=== PATIENT | female | born 1955 | race Caucasian/White ===

== ENCOUNTER 2019-04-09 14:03 | Inpatient (IN) | payer OTHER ==
--- NOTE | 2019-04-09 14:15 | PDOC ---
History of Present Illness - General Chief Complaint: Respiratory Stated Complaint: FEVER AND WEAKNESS Time Seen by Provider: 04/09/19 14:09 - History of Present Illness Initial Comments: HPI: 64yo F with PMH of pre-diabetes sent by urgent care for hypotension (90s systolic). Patient states she started feeling "flu-like symptoms" yesterday including fever, chills, and headache. She took two motrin yesterday and today. As she continued to feel poorly, she decided to go to an urgent care where she tested negative for flu but was instructed to go to the ER for further evaluation of her low blood pressure. Had a fever yesterday, Tmax 104.2F. Patient reports poor po intake today due to low appetite but has been drinking "a lot of water." No cough or urinary symptoms. Denies sick contacts or recent travel. PCP: none ROS: Constitutional: +fever, +chills HEENT: no throat pain, no dysphagia Cardiovascular: no chest pain, no palpitations Respiratory: no cough, no shortness of breath Gastrointestinal: no abdominal pain, no nausea Genitourinary: no dysuria, no hematuria Musculoskeletal: no myalgia, no arthralgia Skin: no rash, no itching Neurologic: +headache, +weakness PE: General: Awake, alert, and fully oriented, in no acute distress Head: No signs of trauma Eyes: EOMI, sclera anicteric ENT: Dry mucus membranes Neck: Normal ROM, supple Lungs: Lungs clear, Normal breath sounds Cardio: Regular rhythm, S1 and S2 present Abdomen: Soft, nontender. No guarding, no rebound, no masses Extremities: Normal range of motion, Distal pulses present SKIN: Warm, Dry, normal turgor Neurologic: Cranial nerves II through XII grossly intact. Normal speech ED Course/MDM: DDX including but not limited to viral illness, dehydration, anemia, metabolic derangement, ACS Fluids Tylenol 04/09/19 14:15 CXR without acute pathology, my impression 04/09/19 14:58 CBC WBC 16.8 K/mm3 (4.0-10.8) H 04/09/19 14:40 RBC 4.81 M/mm3 (3.60-5.2) 04/09/19 14:40 Hgb 14.0 GM/dl (10.7-15.3) 04/09/19 14:40 Hct 41.2 % (32.4-45.2) 04/09/19 14:40 MCV 85.6 fl (80-96) 04/09/19 14:40 MCH 29.1 pg (25.7-33.7) 04/09/19 14:40 MCHC 34.0 g/dl (32.0-36.0) 04/09/19 14:40 RDW 11.6 % (11.6-15.6) 04/09/19 14:40 Plt Count 155 K/MM3 (134-434) 04/09/19 14:40 MPV 8.4 fl (7.5-11.1) 04/09/19 14:40 Absolute Neuts (auto) 15.6 K/mm3 04/09/19 14:40 Neutrophils % No Result Required. 04/09/19 14:40 Neutrophils % (Manual) 80.0 % (42.8-82.8) 04/09/19 14:40 Band Neutrophils % 14.0 % (0-10) H 04/09/19 14:40 Lymphocytes % No Result Required. 04/09/19 14:40 Lymphocytes % (Manual) 5.0 % (8-40) L 04/09/19 14:40 Monocytes % (Manual) 1 % (3.8-10.2) L 04/09/19 14:40 Platelet Estimate Adequate 04/09/19 14:40 Leukocytosis CMP Sodium 125 mmol/L (136-145) L 04/09/19 14:40 Potassium 4.4 mmol/L (3.5-5.1) 04/09/19 14:40 Chloride 95 mmol/L (98-107) L 04/09/19 14:40 Carbon Dioxide 20 mmol/L (21-32) L 04/09/19 14:40 Anion Gap 10 MMOL/L (8-16) 04/09/19 14:40 BUN 12.0 mg/dl (7-18) 04/09/19 14:40 Creatinine 0.7 mg/dl (0.55-1.3) 04/09/19 14:40 Est GFR (CKD-EPI)AfAm 106.87 04/09/19 14:40 Est GFR (CKD-EPI)NonAf 92.21 04/09/19 14:40 Random Glucose 216 mg/dl (74-106) H 04/09/19 14:40 Calcium 8.2 mg/dl (8.5-10) L 04/09/19 14:40 Total Bilirubin 2.9 mg/dl (0.2-1) H 04/09/19 14:40 AST 42 U/L (15-37) H 04/09/19 14:40 ALT 28 U/L (13-61) 04/09/19 14:40 Alkaline Phosphatase 82 U/L (45-117) 04/09/19 14:40 Total Protein 6.7 g/dl (6.4-8.2) 04/09/19 14:40 Albumin 3.7 g/dl (3.4-5.0) 04/09/19 14:40 Hyponatremia; corrected sodium is 128 AST mildly elevated Normal Cr UA with signs of infection, 10-20 WBC, positive nitrite, trace LE, many bacteria Will treat with rocephin Patient feeling "very tired" Tolerated some saltine crackers Decision made to order blood cultures and lactate as blood work shows leukocytosis Plan for admission Pending flu test and lactate 04/09/19 16:38 EKG: rate 81, QTc 439, NSR, flattened/twi in V1/V2 no prior ekg's Flu negative Microblog sent; awaiting callback 04/09/19 17:08 Dr. Long spoke with Cayla Fenton who accepted patient for admission under Dr. West. Admission order placed. 04/09/19 17:36 Past History - Past Medical History Allergies/Adverse Reactions: Allergies Allergy/AdvReac Type Severity Reaction Status Date / Time No Known Allergies Allergy Verified 04/09/19 14:20 Home Medications: Ambulatory Orders Liothyronine Sodium 3 tab PO DAILY 04/09/19 Progesterone, Micronized [Progesterone] 2 cap PO DAILY 04/09/19 Thyroid,Pork [Nature-Throid] 2 tab PO DAILY 04/09/19 metFORMIN HCL [Metformin HCl ER] 1,000 mg PO DAILY 04/09/19 Anemia: No Asthma: No Cancer: No Cardiac Disorders: No CVA: No COPD: No Dementia: No Diabetes: No Dialysis: No GI Disorders: No Disorders: No HTN: No Hypercholesterolemia: No Kidney Stones: No Liver Disease: No Seizures: No Thyroid Disease: No - Surgical History Abdominal Surgery: No Appendectomy: No Cardiac Surgery: No Cholecystectomy: No Lung Surgery: No Neurologic Surgery: No - Immunization History Td Vaccination: No TDAP Vaccination: No Immunization Up to Date: No - Psycho Social/Smoking Cessation Hx Smoking Status: No Smoking History: Never smoked Number of Cigarettes Smoked Daily: 0 ED Treatment Course - LABORATORY CBC & Chemistry Diagram: 04/09/19 14:40 04/09/19 14:40 Discharge - Discharge Information Problems reviewed: Yes Clinical Impression/Diagnosis: Fever and chills, Sepsis associated hypotension UTI (urinary tract infection) Qualifiers: Urinary tract infection type: site unspecified Hematuria presence: with hematuria Qualified Code(s): N39.0 - Urinary tract infection, site not specified Condition: Guarded - Admission Yes - Follow up/Referral - Patient Discharge Instructions - Post Discharge Activity
[2019-04-09] MEDS ORDERED: SODIUM CHLORIDE 1,000 ML IV STA ×3 (14:16→18:27)
[2019-04-09] MEDS ORDERED: ACETAMINOPHEN 325 MG TABLET (FP) PO ONE (14:16)
[2019-04-09] MEDS ORDERED: ACETAMINOPHEN 325 MG TABLET (FP) ONE (14:26)
--- NOTE | 2019-04-09 14:45 | PDOC ---
Attending Attestation - Resident Resident Name: Saadia La - ED Attending Attestation I have performed the following: I have examined & evaluated the patient, The case was reviewed & discussed with the resident, I agree w/resident's findings & plan, Exceptions are as noted - HPI HPI: 04/09/19 18:06 Fever to 104 degrees yesterday, generalized weakness, malaise, fatigue, and body aches. Denies cough, URI symptoms, abdominal pain, dysuria, or skin rash. Seen in urgent care center today, blood pressure was noted to be low, and referred to ER. Past medical history is noncontributory to the above problem. No suggestion as to the source of the fever, other than a negative flu swab which was done at urgent care. - Physicial Exam PE: 04/09/19 18:10 PE: Alert oriented well-developed well-nourished, no acute distress but appears somewhat fatigued. Temperature 101, blood pressure 120/70. Remainder of vitals normal HEENT clear. PERRLA conjunctivae clear. Neck supple without bruit mass or nodes Chest clear with full breath sounds bilaterally, no wheezes rales or rhonchi CV S1-S2 normal without murmur rub or gallop pulses full and symmetric no JVD or edema no bruits regular Abdomen nondistended, bowel sounds normal, soft without mass tenderness or organomegaly Extremities no CCE Skin clear, no rash, adequate turgor but mucous membranes are somewhat dry Neurological C2 to 12 intact. Strength full and symmetric. No focal sensorimotor deficits. Gait stable and unimpaired - Medical Decision Making 04/09/19 18:08 Assessment: The patient symptoms are suggestive of influenza, although there are no specific symptoms present. Other possibilities are occult pneumonia or UTI. Plan: CBC, chemistries, chest x-ray, and urinalysis. Further evaluation and treatment depending on results. Also repeat flu swab. Results demonstrate an elevated white count of 18,000 in the urine suggestive of infection. Blood cultures, lactic acid, and repeat flu swab are pending. Empiric antibiotic treatment was begun and fluids administered. Admitted for further therapy and careful observation.
[2019-04-09 14:59] LABS: HEMATOCRIT 41.2 % (32.4-45.2); MCH 29.1 pg (25.7-33.7)
[2019-04-09 15:02] LABS: MEAN CELL VOLUME 85.6 fl (80-96); MEAN PLT VOLUME 8.4 fl (7.5-11.1); PLATELET COUNT 155 K/MM3 (134-434); RBC 4.81 M/mm3 (3.60-5.2); RDW 11.6 % (11.6-15.6); WHITE BLOOD COUNT 16.8 K/mm3 (4.0-10.8)
[2019-04-09 15:06] LABS: ALBUMIN 3.7 g/dl (3.4-5.0); BILIRUBIN,TOTAL 2.9 mg/dl (0.2-1); CALCIUM 8.2 mg/dl (8.5-10); CREATININE 0.7 mg/dl (0.55-1.3); POTASSIUM 4.4 mmol/L (3.5-5.1); TOT PROT 6.7 g/dl (6.4-8.2)
[2019-04-09 15:34] LABS: EPITHELIAL CELLS MODERATE /hpf
[2019-04-09 15:38] LABS: PLATELET ESTIMATE ADEQUATE
[2019-04-09] MEDS ORDERED: CEFTRIAXONE 1,000 MG in DEXTROSE 5%-WATER - 50 ML IVPB ONE (16:39)
[2019-04-09] MEDS ORDERED: cefTRIAXone SODIUM 1 GM VIAL ONE (16:43)
--- NOTE | 2019-04-09 17:33 | HP ---
CHIEF COMPLAINT: Malaise, fever PCP: None HISTORY OF PRESENT ILLNESS: 64 year-old female with no reported significant PMH, who takes thyroid medications and metformin for wellness/weight loss. She does not follow regularly with a PCP. Patient reports about a week ago she had an upper respiratory infection characterized as nasal congestion with clear discharge, no fever, no cough. She also had dysuria. Yesterday, she developed fever, sweats , and chills. She took her temperature and it was 104.2. She drank a lot of water and took motrin. Today she went to urgent care and was found to be hypotensive (90s systolic), and she was referred to the [place] ED. ER course was notable for: (1) T101.2, WBC 16.8k, pyuria (2) Na 127 corrected Recent Travel: No PAST MEDICAL HISTORY: None reported PAST SURGICAL HISTORY: None reported Social History: Smoking: no Alcohol: no Drugs: no Family history: Allergies No Known Allergies Allergy (Verified 04/09/19 14:20) HOME MEDICATIONS: Home Medications Medication Instructions Recorded Liothyronine Sodium 3 tab PO DAILY 04/09/19 Thyroid,Pork [Nature-Throid] 2 tab PO DAILY 04/09/19 metFORMIN HCL [Metformin HCl ER] 1,000 mg PO HS 04/09/19 REVIEW OF SYSTEMS CONSTITUTIONAL: +fever, sweats, chills, malaise Absent: diaphoresis, generalized weakness, loss of appetite, weight change HEENT: Absent: rhinorrhea, nasal congestion, throat pain, throat swelling, difficulty swallowing, mouth swelling, ear pain, eye pain, visual changes CARDIOVASCULAR: Absent: chest pain, syncope, palpitations, irregular heart rate, lightheadedness , peripheral edema RESPIRATORY: Absent: cough, shortness of breath, dyspnea with exertion, orthopnea, wheezing, stridor, hemoptysis GASTROINTESTINAL: Absent: abdominal pain, abdominal distension, nausea, vomiting, diarrhea, constipation, melena, hematochezia GENITOURINARY: +dysuria Absent: frequency, urgency, hesitancy, hematuria, flank pain, genital pain MUSCULOSKELETAL: Absent: myalgia, arthralgia, joint swelling, back pain, neck pain SKIN: Absent: rash, itching, pallor HEMATOLOGIC/IMMUNOLOGIC: Absent: easy bleeding, easy bruising, lymphadenopathy, frequent infections ENDOCRINE: Absent: unexplained weight gain, unexplained weight loss, heat intolerance, cold intolerance NEUROLOGIC: Absent: headache, focal weakness or paresthesias, dizziness, unsteady gait, seizure, mental status changes, bladder or bowel incontinence PSYCHIATRIC: Absent: anxiety, depression, suicidal or homicidal ideation, hallucinations. PHYSICAL EXAMINATION Vital Signs - 24 hr 04/09/19 04/09/19 14:04 16:49 Temperature 101.2 F H 98.2 F Pulse Rate 89 Pulse Rate [ 88 Apical] Respiratory 20 18 Rate Blood Pressure 120/56 L Blood Pressure 96/50 L [Arm] O2 Sat by Pulse 100 100 Oximetry (%) GENERAL: Awake, alert, and fully oriented, in no acute distress. HEAD: Normal with no signs of trauma. EYES: Pupils equal, round and reactive to light, extraocular movements intact, sclera anicteric, conjunctiva clear. EARS, NOSE, THROAT: Ears normal, nares patent, oropharynx clear without exudates. Dry mucous membranes. NECK: Normal range of motion, supple without lymphadenopathy, JVD, or masses. LUNGS: Breath sounds equal, clear to auscultation bilaterally. No wheezes, and no crackles. No accessory muscle use. HEART: Regular rate and rhythm, normal S1 and S2 ABDOMEN: Soft, nontender, not distended MUSCULOSKELETAL: Normal range of motion at all joints. No bony deformities or tenderness. No CVA tenderness. UPPER EXTREMITIES: 2+ pulses, warm, well-perfused. No cyanosis. No clubbing. No peripheral edema. LOWER EXTREMITIES: 2+ pulses, warm, well-perfused. No calf tenderness. No peripheral edema. NEUROLOGICAL: Cranial nerves II-XII intact. Normal speech. Laboratory Results - last 24 hr 04/09/19 04/09/19 04/09/19 14:40 14:40 15:13 WBC 16.8 H RBC 4.81 Hgb 14.0 Hct 41.2 MCV 85.6 MCH 29.1 MCHC 34.0 RDW 11.6 Plt Count 155 MPV 8.4 Absolute Neuts (auto) 15.6 Neutrophils % No Result Required. Neutrophils % (Manual) 80.0 Band Neutrophils % 14.0 H Lymphocytes % No Result Required. Lymphocytes % (Manual) 5.0 L Monocytes % (Manual) 1 L Platelet Estimate Adequate Sodium 125 L Potassium 4.4 Chloride 95 L Carbon Dioxide 20 L Anion Gap 10 BUN 12.0 Creatinine 0.7 Est GFR (CKD-EPI)AfAm 106.87 Est GFR (CKD-EPI)NonAf 92.21 Random Glucose 216 H Calcium 8.2 L Total Bilirubin 2.9 H AST 42 H ALT 28 Alkaline Phosphatase 82 Total Protein 6.7 Albumin 3.7 Urine Color Urine Appearance Urine pH Urine Protein Urine Glucose (UA) Urine Ketones Urine Blood Urine Nitrite Urine Bilirubin Urine Urobilinogen Ur Leukocyte Esterase Urine RBC Urine WBC Ur Transition Epith Cell Urine Bacteria Influenza A (Rapid) Negative Influenza B (Rapid) Negative 04/09/19 15:15 WBC RBC Hgb Hct MCV MCH MCHC RDW Plt Count MPV Absolute Neuts (auto) Neutrophils % Neutrophils % (Manual) Band Neutrophils % Lymphocytes % Lymphocytes % (Manual) Monocytes % (Manual) Platelet Estimate Sodium Potassium Chloride Carbon Dioxide Anion Gap BUN Creatinine Est GFR (CKD-EPI)AfAm Est GFR (CKD-EPI)NonAf Random Glucose Calcium Total Bilirubin AST ALT Alkaline Phosphatase Total Protein Albumin Urine Color [place] Urine Appearance Slightly Urine pH 5.5 Urine Protein 2+ H Urine Glucose (UA) Negative Urine Ketones Negative Urine Blood 2+ H Urine Nitrite Positive H Urine Bilirubin 1+ H Urine Urobilinogen 1.0 Ur Leukocyte Esterase Trace H Urine RBC 20-40 Urine WBC 10-20 Ur Transition Epith Cell Moderate Urine Bacteria Many Influenza A (Rapid) Influenza B (Rapid) ASSESSMENT/PLAN: 64 year-old female with no reported significant PMH admitted for sepsis likely secondary to UTI. Sepsis likely secondary to UTI --T101.2, WBC 16.8k, pyuria present on admission --NS x 1L, ceftriaxone 1g x 1 given in ED --give another 1L NS now --continue ceftriaxone Hematuria --may be due to hemorrhagic cystitis v. stone v. other --repeat UA in am, if hematuria persists will need further workup Hyponatremia --Na 127 corrected --likely low volume state, fevers, insensible losses --urine studies ordered --IV fluids --bmp q6h FEN Fluids: NS @ 75mL/hr Electrolytes: replete as indicated Nutrition: diabetic diet DVT prophylaxis: hold chemical prophylaxis due to hematuria; oob, early ambulation Physical therapy Dispo: continues to require inpatient care. Full code. Visit type - Emergency Visit Emergency Visit: Yes ED Registration Date: 04/09/19 Care time: The patient presented to the Emergency Department on the above date and was hospitalized for further evaluation of their emergent condition. - New Patient This patient is new to me today: Yes Date on this admission: 04/10/19 - Critical Care Critical Care patient: No
[2019-04-09 18:57] VITALS: BMI 31.9
[2019-04-09 20:33] LABS: CALCIUM 7.6 mg/dl (8.5-10); CREATININE 0.9 mg/dl (0.55-1.3)
[2019-04-09 20:36] LABS: POTASSIUM 2.9 mmol/L (3.5-5.1)
[2019-04-09] MEDS ORDERED: SODIUM CHLORIDE 1,000 ML with POTASSIUM CHLORIDE 20 MEQ IVPB SCH (21:15)
[2019-04-09] MEDS ORDERED: SODIUM CHLORIDE 0.9%/KCL 20 MEQ/1,000 ML INFUS.BAG IV SCH (21:15)
[2019-04-09] MEDS: POTASSIUM CHLORIDE TABS 20 MEQ TABLET.ER (FP) PO SCH (22:01)
[2019-04-10] MEDS: POTASSIUM CHLORIDE TABS 20 MEQ TABLET.ER (FP) PO SCH (02:36)
[2019-04-10 04:45] LABS: BLOOD UREA NITROGEN 20.2 mg/dL (7-18); CALCIUM 7.6 mg/dL (8.5-10.1); CREATININE 1.2 mg/dL (0.55-1.3); POTASSIUM 3.4 mmol/L (3.5-5.1)
[2019-04-10 08:04] LABS: BASO % 0.1 % (0-2.0); EOS % 0.1 % (0-4.5); HEMATOCRIT 35.8 % (32.4-45.2); HEMOGLOBIN 12.2 GM/dl (10.7-15.3); MCH 29.5 pg (25.7-33.7); MEAN CELL VOLUME 86.6 fl (80-96); MEAN PLT VOLUME 8.4 fl (7.5-11.1); MONO % 3.8 % (3.8-10.2); PLATELET COUNT 125 K/MM3 (134-434); RBC 4.13 M/mm3 (3.60-5.2); RDW 12.2 % (11.6-15.6); WHITE BLOOD COUNT 11.1 K/mm3 (4.0-10.8)
[2019-04-10 08:11] LABS: ALBUMIN 2.6 g/dl (3.4-5.0); BILIRUBIN,TOTAL 2.9 mg/dl (0.2-1); CALCIUM 7.9 mg/dl (8.5-10); MAGNESIUM 1.2 mg/dL (1.8-2.4); POTASSIUM 4.5 mmol/L (3.5-5.1); TOT PROT 5.3 g/dl (6.4-8.2)
[2019-04-10] MEDS: ACETAMINOPHEN 325 MG TABLET (FP) PO PRN ×2 (08:17→17:58)
[2019-04-10] MEDS ORDERED: MAGNESIUM SULF 50% (8.12 MEQ/2 ML-1 GM VIAL) IVPB ONE (08:33)
[2019-04-10 08:34] LABS: EPITHELIAL CELLS MODERATE /hpf
[2019-04-10] MEDS ORDERED: POTASSIUM CHLORIDE TABS 20 MEQ TABLET.ER (FP) PO ONE (08:45)
[2019-04-10] MEDS ORDERED: MAGNESIUM SULFATE IN WATER 2 GM/50 ML IVPB IVPB ONE (08:45)
[2019-04-10] MEDS ORDERED: AZITHROMYCIN IVPB 500 MG/250 ML BAG IVPB ONE (08:45)
--- NOTE | 2019-04-10 08:46 | PN ---
Physical Exam: SUBJECTIVE: Patient seen and examined at bedside. Feels cannot take a deep breath. Feels weak. Feverish. OBJECTIVE: Vital Signs Period Temp Pulse Resp BP Sys/Penaloza Pulse Ox Last 24 Hr 98.2 F-101.2 F 88-99 16-20 96-120/50-56 96-100 GENERAL: The patient is awake, alert, and fully oriented, in no acute distress. LUNGS: Shallow breathing, RR 36, lungs are CTA, no wheezing. HEART: Regular rate and rhythm, S1, S2 without murmur, rub or gallop. ABDOMEN: mildly distended, firm; not tender; normoactive bowel sounds EXTREMITIES: 2+ pulses, warm, well-perfused, no edema. NEUROLOGICAL: Cranial nerves II through XII grossly intact. Normal speech, gait not observed. PSYCH: Normal mood, normal affect. SKIN: Warm, dry, normal turgor Laboratory Results - last 24 hr 04/09/19 04/09/19 04/09/19 14:40 14:40 14:40 WBC 16.8 H RBC 4.81 Hgb 14.0 Hct 41.2 MCV 85.6 MCH 29.1 MCHC 34.0 RDW 11.6 Plt Count 155 MPV 8.4 Absolute Neuts (auto) 15.6 Neutrophils % No Result Required. Neutrophils % (Manual) 80.0 Band Neutrophils % 14.0 H Lymphocytes % No Result Required. Lymphocytes % (Manual) 5.0 L Monocytes % Monocytes % (Manual) 1 L Eosinophils % Basophils % Platelet Estimate Adequate Sodium 125 L Potassium 4.4 Chloride 95 L Carbon Dioxide 20 L Anion Gap 10 BUN 12.0 Creatinine 0.7 Est GFR (CKD-EPI)AfAm 106.87 Est GFR (CKD-EPI)NonAf 92.21 Random Glucose 216 H Lactic Acid Calcium 8.2 L Magnesium Total Bilirubin 2.9 H AST 42 H ALT 28 Alkaline Phosphatase 82 Creatine Kinase Troponin I < 0.03 Total Protein 6.7 Albumin 3.7 TSH Urine Color Urine Appearance Urine pH Urine Protein Urine Glucose (UA) Urine Ketones Urine Blood Urine Nitrite Urine Bilirubin Urine Urobilinogen Ur Leukocyte Esterase Urine RBC Urine WBC Ur Transition Epith Cell Urine Bacteria Ur Random Creatinine Ur Random Sodium Influenza A (Rapid) Influenza B (Rapid) 04/09/19 04/09/19 04/09/19 14:40 15:13 15:15 WBC RBC Hgb Hct MCV MCH MCHC RDW Plt Count MPV Absolute Neuts (auto) Neutrophils % Neutrophils % (Manual) Band Neutrophils % Lymphocytes % Lymphocytes % (Manual) Monocytes % Monocytes % (Manual) Eosinophils % Basophils % Platelet Estimate Sodium Potassium Chloride Carbon Dioxide Anion Gap BUN Creatinine Est GFR (CKD-EPI)AfAm Est GFR (CKD-EPI)NonAf Random Glucose Lactic Acid Calcium Magnesium Total Bilirubin AST ALT Alkaline Phosphatase Creatine Kinase 89 Troponin I Total Protein Albumin TSH Urine Color [place] Urine Appearance Slightly Urine pH 5.5 Urine Protein 2+ H Urine Glucose (UA) Negative Urine Ketones Negative Urine Blood 2+ H Urine Nitrite Positive H Urine Bilirubin 1+ H Urine Urobilinogen 1.0 Ur Leukocyte Esterase Trace H Urine RBC 20-40 Urine WBC 10-20 Ur Transition Epith Cell Moderate Urine Bacteria Many Ur Random Creatinine Ur Random Sodium Influenza A (Rapid) Negative Influenza B (Rapid) Negative 04/09/19 04/09/19 04/09/19 15:15 15:15 15:15 WBC RBC Hgb Hct MCV MCH MCHC RDW Plt Count MPV Absolute Neuts (auto) Neutrophils % Neutrophils % (Manual) Band Neutrophils % Lymphocytes % Lymphocytes % (Manual) Monocytes % Monocytes % (Manual) Eosinophils % Basophils % Platelet Estimate Sodium Potassium Chloride Carbon Dioxide Anion Gap BUN Creatinine Est GFR (CKD-EPI)AfAm Est GFR (CKD-EPI)NonAf Random Glucose Lactic Acid Calcium Magnesium Total Bilirubin AST ALT Alkaline Phosphatase Creatine Kinase Troponin I Total Protein Albumin TSH 0.01 L Urine Color Urine Appearance Urine pH Urine Protein Urine Glucose (UA) Urine Ketones Urine Blood Urine Nitrite Urine Bilirubin Urine Urobilinogen Ur Leukocyte Esterase Urine RBC Urine WBC Ur Transition Epith Cell Urine Bacteria Ur Random Creatinine 200.9 Ur Random Sodium 6 L Influenza A (Rapid) Influenza B (Rapid) 04/09/19 04/09/19 04/10/19 16:30 20:05 02:00 WBC RBC Hgb Hct MCV MCH MCHC RDW Plt Count MPV Absolute Neuts (auto) Neutrophils % Neutrophils % (Manual) Band Neutrophils % Lymphocytes % Lymphocytes % (Manual) Monocytes % Monocytes % (Manual) Eosinophils % Basophils % Platelet Estimate Sodium 129 L 136 Potassium 2.9 L* 3.4 L Chloride 98 106 Carbon Dioxide 19 L 19 L Anion Gap 12 11 BUN 13.0 20.2 H Creatinine 0.9 1.2 Est GFR (CKD-EPI)AfAm 78.87 55.70 Est GFR (CKD-EPI)NonAf 68.05 48.06 Random Glucose 219 H 208 H Lactic Acid 2.0 Calcium 7.6 L 7.6 L Magnesium Total Bilirubin AST ALT Alkaline Phosphatase Creatine Kinase Troponin I Total Protein Albumin TSH Urine Color Urine Appearance Urine pH Urine Protein Urine Glucose (UA) Urine Ketones Urine Blood Urine Nitrite Urine Bilirubin Urine Urobilinogen Ur Leukocyte Esterase Urine RBC Urine WBC Ur Transition Epith Cell Urine Bacteria Ur Random Creatinine Ur Random Sodium Influenza A (Rapid) Influenza B (Rapid) 04/10/19 04/10/19 04/10/19 07:25 07:25 08:00 WBC 11.1 H RBC 4.13 Hgb 12.2 Hct 35.8 MCV 86.6 MCH 29.5 MCHC 34.0 RDW 12.2 Plt Count 125 L MPV 8.4 Absolute Neuts (auto) 10.5 Neutrophils % 94.0 H Neutrophils % (Manual) Band Neutrophils % Lymphocytes % 2.0 L Lymphocytes % (Manual) Monocytes % 3.8 Monocytes % (Manual) Eosinophils % 0.1 Basophils % 0.1 Platelet Estimate Sodium 132 L Potassium 4.5 Chloride 105 Carbon Dioxide 18 L Anion Gap 9 BUN 19.0 H Creatinine 1.0 Est GFR (CKD-EPI)AfAm 69.44 Est GFR (CKD-EPI)NonAf 59.91 Random Glucose 183 H Lactic Acid Calcium 7.9 L Magnesium 1.2 L Total Bilirubin 2.9 H AST 26 ALT 21 Alkaline Phosphatase 57 D Creatine Kinase Troponin I Total Protein 5.3 L Albumin 2.6 L TSH Urine Color Yellow Urine Appearance Clear Urine pH 6.0 Urine Protein Negative Urine Glucose (UA) Negative Urine Ketones Negative Urine Blood Trace-intact Urine Nitrite Negative Urine Bilirubin Negative Urine Urobilinogen 0.2 Ur Leukocyte Esterase Negative Urine RBC 2-5 Urine WBC 2-5 Ur Transition Epith Cell Moderate Urine Bacteria Few Ur Random Creatinine Ur Random Sodium Influenza A (Rapid) Influenza B (Rapid) Active Medications Generic Name Dose Route Start Last Admin Trade Name Freq PRN Reason Stop Dose Admin Acetaminophen 650 mg 04/10/19 07:56 04/10/19 08:17 Tylenol - PO 650 mg Q6H PRN Administration FEVER Ceftriaxone Sodium 50 mls @ 100 mls/hr 04/10/19 10:00 Ceftriaxone 1 Gm-D5w Bag IVPB DAILY LANCE Protocol Potassium Chloride/Sodium Chloride 20 meq in 1,000 mls @ 125 mls/hr 04/09/19 21:15 04/09/19 22:00 Ns+20 Meq Kcl - IV 125 mls/hr ASDIR LANCE Administration Azithromycin 500 mg in 250 mls @ 250 mls/hr 04/10/19 08:45 Zithromax 500mg Ivpb (Pre-Docked) IVPB 04/10/19 09:44 ONCE ONE Magnesium Sulfate 2 gm in 50 mls @ 50 mls/hr 04/10/19 08:45 Magnesium Sulf 2 G/50 Ml Bag IVPB 04/10/19 09:44 ONCE ONE Liothyronine Sodium 15 mcg 04/10/19 10:00 Cytomel - PO DAILY LANCE Non-Formulary Medication 2 tab 04/10/19 10:00 Thyroid,Pork [Nature-Throid] PO DAILY LANCE ASSESSMENT/PLAN 64 year-old female with no reported significant PMH admitted for sepsis likely secondary to UTI. Sepsis Tachypnea --T101.2, WBC 16.8k, pyuria present on admission --fever spike to 103 today --flu negative; Legionella negative --serial CXRs unremarkable and CTA negative for PE, infiltrates, pneumonia --viral panel ordered --CTAP ordered --stop ceftriaxone and azithro --Vanc 1.5g x 1 dose --start Zosyn --ID consult Hyperthyroidism --takes multiple thyroid meds and uses thyroid topical cream as part of wellness program --TSH 0.01, free T4 wnl, free T3 pending --continue home regimen until all labs back Hematuria --repeat UA today, hematuria improved Hyponatremia Pre renal azotemia --Na 133 corrected --continue gentle hydration FEN Fluids: NS @ 50mL/hr Electrolytes: replete as indicated Nutrition: diabetic diet DVT prophylaxis: subq lovenox, oob, early ambulation Physical therapy Dispo: continues to require inpatient care. Full code. Visit type - Emergency Visit Emergency Visit: Yes ED Registration Date: 04/09/19 Care time: The patient presented to the Emergency Department on the above date and was hospitalized for further evaluation of their emergent condition. - New Patient This patient is new to me today: No - Critical Care Critical Care patient: No
[2019-04-10] MEDS ORDERED: LIOTHYRONINE SODIUM 5 MCG TABLET PO SCH ×2 (10:00→15:00)
[2019-04-10] MEDS ORDERED: THYROID PORK 130 MG PO SCH ×3 (10:00→15:15)
[2019-04-10] MEDS: CEFTRIAXONE 1 G/50 ML PREMIX 50 ML IVPB SCH (10:18)
--- NOTE | 2019-04-10 11:59 | EKG ---
Test Reason : Blood Pressure : / mmHG Vent. Rate : 081 BPM Atrial Rate : 081 BPM P-R Int : 162 ms QRS Dur : 086 ms QT Int : 378 ms P-R-T Axes : 052 006 023 degrees QTc Int : 439 ms NORMAL SINUS RHYTHM SEPTAL INFARCT , AGE UNDETERMINED ABNORMAL ECG NO PREVIOUS ECGS AVAILABLE Confirmed by ISAAC MINOR, PIETRO ([id number]) on 04/10/2019 11:59:35 AM Referred By: MD GANNON Confirmed By:PIETRO GRAY MD
[2019-04-10 14:27] LABS: POTASSIUM 4.5 mmol/L (3.5-5.1)
[2019-04-10] MEDS ORDERED: NON-FORMULARY MED PO SCH (14:45)
[2019-04-10] MEDS ORDERED: PT OWN MED DRAWER 7, Y5N ONE (15:13)
[2019-04-10] MEDS: PROGESTERONE 200 MG PO SCH (15:15)
[2019-04-10] MEDS: NON-FORMULARY MED PO SCH (15:18)
[2019-04-10] MEDS ORDERED: ALBUTEROL SO4 0.083% IH SOL 2.5 MG/3 ML VIAL.NEB. NEB ONE (17:13)
[2019-04-10] MEDS ORDERED: PIPERACILLIN/TAZOBACTAM 3.375 GM VIAL IVPB ONE (18:13)
[2019-04-10] MEDS ORDERED: DEXTROSE 5%-WATER - 50 ML IVPB ONE (18:13)
[2019-04-10] MEDS ORDERED: VANCOMYCIN HCL 1,500 MG in DEXTROSE 5%-WATER - 250 ML IVPB SCH (18:15)
[2019-04-10] MEDS: PIPERACILLIN/TAZOB 3.375 GM 3.375 GM in DEXTROSE 5%-WATER - 50 ML IVPB SCH (18:20)
[2019-04-10] MEDS ORDERED: VANCOMYCIN HCL 1,500 MG in DEXTROSE 5%-WATER - 500 ML IVPB SCH (19:00)
[2019-04-10] MEDS ORDERED: SODIUM CHLORIDE 1,000 ML IV SCH (19:15)
[2019-04-10] MEDS: ALBUTEROL SO4 0.083% IH SOL 2.5 MG/3 ML VIAL.NEB. NEB SCH (21:51)
[2019-04-10] MEDS: ENOXAPARIN NA (PORCINE) 40 MG/0.4 ML DISP.SYRIN SQ SCH (21:53)
[2019-04-10] MEDS ORDERED: SODIUM CHLORIDE 1,000 ML IV ONE (22:30)
[2019-04-10] MEDS: SODIUM CHLORIDE 1,000 ML IV SCH (23:30)
[2019-04-11] MEDS ORDERED: PIPERACILLIN/TAZOBACTAM 3.375 GM VIAL IVPB ONE ×2 (00:39→09:00)
[2019-04-11] MEDS ORDERED: DEXTROSE 5%-WATER - 50 ML IVPB ONE ×2 (00:40→09:00)
[2019-04-11] MEDS: PIPERACILLIN/TAZOB 3.375 GM 3.375 GM in DEXTROSE 5%-WATER - 50 ML IVPB SCH ×4 (01:25→15:35)
[2019-04-11] MEDS ORDERED: morphine CARPU-JECT 2 MG/1 ML DISP.SYRIN IVPUSH ONE (04:02)
[2019-04-11] MEDS: LIOTHYRONINE SODIUM 5 MCG TABLET PO SCH (06:25)
[2019-04-11] MEDS ORDERED: PT OWN MED DRAWER 7, Y5N ONE ×2 (06:25→10:03)
--- NOTE | 2019-04-11 07:34 | PN ---
Physical Exam: SUBJECTIVE: Patient seen and examined OBJECTIVE: Vital Signs Period Temp Pulse Resp BP Sys/Penaloza Pulse Ox Last 24 Hr 98.2 F-103.0 F 92-114 18-24 98-109/50-64 95-100 GENERAL: The patient is awake, alert, and fully oriented, in no acute distress. HEAD: Normal with no signs of trauma. EYES: PERRL, extraocular movements intact, sclera anicteric, conjunctiva clear. No ptosis. ENT: Ears normal, nares patent, oropharynx clear without exudates, moist mucous membranes. NECK: Trachea midline, full range of motion, supple. LUNGS: Breath sounds equal, clear to auscultation bilaterally, no wheezes, no crackles, no accessory muscle use. HEART: Regular rate and rhythm, S1, S2 without murmur, rub or gallop. ABDOMEN: Soft, nontender, nondistended, normoactive bowel sounds, no guarding, no rebound, no hepatosplenomegaly, no masses. EXTREMITIES: 2+ pulses, warm, well-perfused, no edema. NEUROLOGICAL: Cranial nerves II through XII grossly intact. Normal speech, gait not observed. PSYCH: Normal mood, normal affect. SKIN: Warm, dry, normal turgor, no rashes or lesions noted Laboratory Results - last 24 hr 04/10/19 04/10/19 04/10/19 07:10 07:25 07:25 WBC 11.1 H RBC 4.13 Hgb 12.2 Hct 35.8 MCV 86.6 MCH 29.5 MCHC 34.0 RDW 12.2 Plt Count 125 L MPV 8.4 Absolute Neuts (auto) 10.5 Neutrophils % 94.0 H Lymphocytes % 2.0 L Monocytes % 3.8 Eosinophils % 0.1 Basophils % 0.1 Sodium 132 L Potassium 4.5 Chloride 105 Carbon Dioxide 18 L Anion Gap 9 BUN 19.0 H Creatinine 1.0 Est GFR (CKD-EPI)AfAm 69.44 Est GFR (CKD-EPI)NonAf 59.91 Random Glucose 183 H Hemoglobin A1c % 6.6 H Lactic Acid Calcium 7.9 L Magnesium 1.2 L Total Bilirubin 2.9 H AST 26 ALT 21 Alkaline Phosphatase 57 D Creatine Kinase Total Protein 5.3 L Albumin 2.6 L Free T4 Free T3 Urine Color Urine Appearance Urine pH Urine Protein Urine Glucose (UA) Urine Ketones Urine Blood Urine Nitrite Urine Bilirubin Urine Urobilinogen Ur Leukocyte Esterase Urine RBC Urine WBC Ur Transition Epith Cell Urine Bacteria 04/10/19 04/10/19 04/10/19 08:00 14:06 14:06 WBC RBC Hgb Hct MCV MCH MCHC RDW Plt Count MPV Absolute Neuts (auto) Neutrophils % Lymphocytes % Monocytes % Eosinophils % Basophils % Sodium 131 L Potassium 4.5 Chloride 106 Carbon Dioxide 19 L Anion Gap 6 L BUN 18.0 Creatinine 1.0 Est GFR (CKD-EPI)AfAm 69.44 Est GFR (CKD-EPI)NonAf 59.91 Random Glucose 210 H Hemoglobin A1c % Lactic Acid Calcium 8.0 L Magnesium Total Bilirubin AST ALT Alkaline Phosphatase Creatine Kinase Total Protein Albumin Free T4 0.84 Free T3 Urine Color Yellow Urine Appearance Clear Urine pH 6.0 Urine Protein Negative Urine Glucose (UA) Negative Urine Ketones Negative Urine Blood Trace-intact Urine Nitrite Negative Urine Bilirubin Negative Urine Urobilinogen 0.2 Ur Leukocyte Esterase Negative Urine RBC 2-5 Urine WBC 2-5 Ur Transition Epith Cell Moderate Urine Bacteria Few 04/10/19 04/10/19 04/10/19 14:06 14:06 20:20 WBC RBC Hgb Hct MCV MCH MCHC RDW Plt Count MPV Absolute Neuts (auto) Neutrophils % Lymphocytes % Monocytes % Eosinophils % Basophils % Sodium Potassium Chloride Carbon Dioxide Anion Gap BUN Creatinine Est GFR (CKD-EPI)AfAm Est GFR (CKD-EPI)NonAf Random Glucose Hemoglobin A1c % Lactic Acid 3.6 H* Calcium Magnesium Total Bilirubin AST ALT Alkaline Phosphatase Creatine Kinase 78 Total Protein Albumin Free T4 Free T3 0.7 L Urine Color Urine Appearance Urine pH Urine Protein Urine Glucose (UA) Urine Ketones Urine Blood Urine Nitrite Urine Bilirubin Urine Urobilinogen Ur Leukocyte Esterase Urine RBC Urine WBC Ur Transition Epith Cell Urine Bacteria 04/11/19 02:00 WBC RBC Hgb Hct MCV MCH MCHC RDW Plt Count MPV Absolute Neuts (auto) Neutrophils % Lymphocytes % Monocytes % Eosinophils % Basophils % Sodium Potassium Chloride Carbon Dioxide Anion Gap BUN Creatinine Est GFR (CKD-EPI)AfAm Est GFR (CKD-EPI)NonAf Random Glucose Hemoglobin A1c % Lactic Acid 1.7 Calcium Magnesium Total Bilirubin AST ALT Alkaline Phosphatase Creatine Kinase Total Protein Albumin Free T4 Free T3 Urine Color Urine Appearance Urine pH Urine Protein Urine Glucose (UA) Urine Ketones Urine Blood Urine Nitrite Urine Bilirubin Urine Urobilinogen Ur Leukocyte Esterase Urine RBC Urine WBC Ur Transition Epith Cell Urine Bacteria Active Medications Generic Name Dose Route Start Last Admin Trade Name Krystin PRN Reason Stop Dose Admin Acetaminophen 650 mg 04/10/19 07:56 04/10/19 17:58 Tylenol - PO 650 mg Q6H PRN Administration FEVER Albuterol Sulfate 1 amp 04/10/19 20:00 04/10/19 21:51 Ventolin 0.083% Nebulizer Soln - NEB 1 amp RTID LANCE Administration Enoxaparin Sodium 40 mg 04/10/19 19:30 04/10/19 21:53 Lovenox - SQ 40 mg DAILY LANCE Administration Ceftriaxone Sodium 50 mls @ 100 mls/hr 04/10/19 10:00 04/10/19 10:18 Ceftriaxone 1 Gm-D5w Bag IVPB 100 mls/hr DAILY LANCE Administration Protocol Piperacillin Sod/Tazobactam 50 mls @ 100 mls/hr 04/10/19 18:15 Sod 3.375 gm/ Dextrose IVPB Q8H-IV LANCE Protocol Piperacillin Sod/Tazobactam 50 mls @ 100 mls/hr 04/10/19 18:15 04/11/19 01:25 Sod 3.375 gm/ Dextrose IVPB 04/11/19 10:29 100 mls/hr Q8H-IV LANCE Administration Protocol Sodium Chloride 1,000 mls @ 50 mls/hr 04/10/19 19:15 04/10/19 21:52 Normal Saline - IV 04/11/19 19:12 50 mls/hr ASDIR LANCE Administration Sodium Chloride 1,000 mls @ 100 mls/hr 04/10/19 23:30 04/10/19 23:30 Normal Saline - IV 100 mls/hr ASDIR LANCE Administration Liothyronine Sodium 15 mcg 04/10/19 15:14 04/11/19 06:25 Cytomel - PO 15 mcg DAILY@0700 LANCE Administration Non-Formulary Medication 0 each 04/10/19 15:00 04/10/19 15:18 Non-Formulary Med PO 1 each DAILY LANCE Administration Non-Formulary Medication 0 each 04/10/19 15:15 04/10/19 15:15 Non-Formulary Med PO 2 each DAILY LANCE Administration ASSESSMENT/PLAN:
[2019-04-11 08:37] LABS: ALBUMIN 2.3 g/dl (3.4-5.0); BILIRUBIN,TOTAL 2.9 mg/dl (0.2-1); CALCIUM 7.8 mg/dl (8.5-10); CREATININE 1.2 mg/dl (0.55-1.3); MAGNESIUM 2.1 mg/dL (1.8-2.4); PHOSPHOROUS 2.4 mg/dl (2.5-4.9); POTASSIUM 4.4 mmol/L (3.5-5.1); TOT PROT 4.8 g/dl (6.4-8.2)
[2019-04-11 08:38] LABS: HEMATOCRIT 33.2 % (32.4-45.2); HEMOGLOBIN 11.4 GM/dl (10.7-15.3); MCH 29.4 pg (25.7-33.7); MCHC 34.2 g/dl (32.0-36.0); MEAN CELL VOLUME 85.8 fl (80-96); PLATELET COUNT 127 K/MM3 (134-434); RBC 3.87 M/mm3 (3.60-5.2); RDW 12.3 % (11.6-15.6)
[2019-04-11] MEDS: ALBUTEROL SO4 0.083% IH SOL 2.5 MG/3 ML VIAL.NEB. NEB SCH ×3 (08:42→20:48)
[2019-04-11 08:43] LABS: ADD RBC MORPHOLOGY YES
[2019-04-11 09:39] LABS: PLATELET ESTIMATE ADEQUATE
[2019-04-11] MEDS ORDERED: THYROID PORK PO SCH (10:00)
[2019-04-11] MEDS: CEFTRIAXONE 1 G/50 ML PREMIX 50 ML IVPB SCH (10:05)
[2019-04-11] MEDS: ENOXAPARIN NA (PORCINE) 40 MG/0.4 ML DISP.SYRIN SQ SCH (10:05)
[2019-04-11] MEDS: NON-FORMULARY MED PO SCH (10:06)
[2019-04-11] MEDS: PROGESTERONE 200 MG PO SCH (10:09)
[2019-04-11] MEDS: THYROID PORK PO SCH (10:10)
--- NOTE | 2019-04-11 14:01 | CON.ID ---
Consult Consult Specialty:: infectious diseases Referred by:: meme Reason for Consultation:: leukocytosis,fever - History of Present Illness Chief Complaint: weakness,fever History of Present Illness: 64 year-old female with no reported significant PMH, who takes thyroid medications and metformin for wellness/weight loss. She does not follow regularly with a PCP. Patient reports about a week ago she had an upper respiratory infection characterized as nasal congestion with clear discharge, no fever, no cough. She also had dysuria. Yesterday, she developed fever, sweats , and chills. She took her temperature and it was 104.2. She drank a lot of water and took motrin. Today she went to urgent care and was found to be hypotensive (90s systolic), and she was referred to the [place] [facility]. patient mentions that she takes all types of drugs as per wellness clinic like thyroxine,progesterone,multiple vitamins currently she feels very weak also on work up her bili is on the higher side - History Source History Provided By: Patient Limitations to Obtaining History: No Limitations - Past Medical History ...LMP: 03/28/12 ...: No - Alcohol/Substance Use Hx Alcohol Use: No - Smoking History Smoking history: Never smoked Have you smoked in the past 12 months: No Aproximately how many cigarettes per day: 0 Home Medications - Allergies Allergies/Adverse Reactions: Allergies Allergy/AdvReac Type Severity Reaction Status Date / Time No Known Allergies Allergy Verified 04/09/19 14:20 - Home Medications Home Medications: Ambulatory Orders Liothyronine Sodium 3 tab PO DAILY 04/09/19 Progesterone, Micronized [Progesterone] 2 cap PO DAILY 04/09/19 metFORMIN HCL [Metformin HCl ER] 1,000 mg PO DAILY 04/09/19 Thyroid,Pork [Nature-Throid] 260 mg PO DAILY 04/11/19 Review of Systems - Review of Systems Constitutional: reports: Fever, Weakness, Other Eyes: reports: No Symptoms HENT: reports: No Symptoms Neck: reports: No Symptoms Cardiovascular: reports: No Symptoms Respiratory: reports: No Symptoms Gastrointestinal: reports: No Symptoms Genitourinary: reports: No Symptoms Musculoskeletal: reports: No Symptoms Integumentary: reports: No Symptoms Neurological: reports: No Symptoms Endocrine: reports: No Symptoms Hematology/Lymphatic: reports: No Symptoms Psychiatric: reports: No Symptoms Physical Exam Vital Signs: Vital Signs Temperature 99.5 F 04/11/19 12:21 Pulse Rate 113 H 04/11/19 12:21 Respiratory Rate 20 04/11/19 12:21 Blood Pressure 117/58 L 04/11/19 12:21 O2 Sat by Pulse Oximetry (%) 98 04/11/19 12:21 Constitutional: Yes: Well Nourished, Calm, Mild Distress Eyes: Yes: Conjunctiva Clear Cardiovascular: Yes: S1, S2 Respiratory: Yes: Regular, CTA Bilaterally Gastrointestinal: Yes: Normal Bowel Sounds, Soft Musculoskeletal: Yes: WNL Extremities: Yes: WNL Neurological: Yes: Alert, Oriented Psychiatric: Yes: Alert, Oriented Labs: CBC, BMP 04/11/19 07:05 04/11/19 07:05 Imaging - Results Chest X-ray: Report Reviewed, Image Reviewed Cat Scan: Report Reviewed, Image Reviewed Assessment/Plan 64 year-old female with no reported significant PMH admitted for sepsis likely secondary to UTI. Sepsis likely Hematuria hyperbilirubinemia Hyponatremia i have looked at all her results and imaging studies i am worried this could be due to her taking all the drugs in the wellness clinica i think we should get an endo hydrates we will deescalte abx and monitor close watch on all her electrolytes and other things rest as per the team
[2019-04-11] MEDS: ACETAMINOPHEN 325 MG TABLET (FP) PO PRN (14:49)
--- NOTE | 2019-04-11 15:42 | PN ---
Documentation entered by Dayana Del Castillo SCRIBE, acting as scribe for Cayla Fenton NP. Physical Exam: SUBJECTIVE: Patient seen and examined at bedside. Breathing is better. Complaining of abdominal muscle soreness and distension. Has had diarrhea. OBJECTIVE: Vital Signs Period Temp Pulse Resp BP Sys/Penaloza Pulse Ox Last 24 Hr 98.2 F-101.8 F 92-114 18-24 98-109/50-61 95-100 GENERAL: The patient is awake, alert, and fully oriented, in no acute distress. LUNGS: CTA, no wheezing, unlabored HEART: Regular rate and rhythm, S1, S2 without murmur, rub or gallop. ABDOMEN: distended, firm, tympanitic, normoactive bowel sounds EXTREMITIES: 2+ pulses, warm, well-perfused, no edema. NEUROLOGICAL: Cranial nerves II through XII grossly intact. Normal speech, gait not observed. Laboratory Results - last 24 hr 04/10/19 04/10/19 04/10/19 07:10 07:25 07:25 WBC 11.1 H RBC 4.13 Hgb 12.2 Hct 35.8 MCV 86.6 MCH 29.5 MCHC 34.0 RDW 12.2 Plt Count 125 L MPV 8.4 Absolute Neuts (auto) 10.5 Neutrophils % 94.0 H Lymphocytes % 2.0 L Monocytes % 3.8 Eosinophils % 0.1 Basophils % 0.1 Sodium 132 L Potassium 4.5 Chloride 105 Carbon Dioxide 18 L Anion Gap 9 BUN 19.0 H Creatinine 1.0 Est GFR (CKD-EPI)AfAm 69.44 Est GFR (CKD-EPI)NonAf 59.91 Random Glucose 183 H Hemoglobin A1c % 6.6 H Lactic Acid Calcium 7.9 L Magnesium 1.2 L Total Bilirubin 2.9 H AST 26 ALT 21 Alkaline Phosphatase 57 D Creatine Kinase Total Protein 5.3 L Albumin 2.6 L Free T4 Free T3 Urine Color Urine Appearance Urine pH Urine Protein Urine Glucose (UA) Urine Ketones Urine Blood Urine Nitrite Urine Bilirubin Urine Urobilinogen Ur Leukocyte Esterase Urine RBC Urine WBC Ur Transition Epith Cell Urine Bacteria 04/10/19 04/10/19 04/10/19 08:00 14:06 14:06 WBC RBC Hgb Hct MCV MCH MCHC RDW Plt Count MPV Absolute Neuts (auto) Neutrophils % Lymphocytes % Monocytes % Eosinophils % Basophils % Sodium 131 L Potassium 4.5 Chloride 106 Carbon Dioxide 19 L Anion Gap 6 L BUN 18.0 Creatinine 1.0 Est GFR (CKD-EPI)AfAm 69.44 Est GFR (CKD-EPI)NonAf 59.91 Random Glucose 210 H Hemoglobin A1c % Lactic Acid Calcium 8.0 L Magnesium Total Bilirubin AST ALT Alkaline Phosphatase Creatine Kinase Total Protein Albumin Free T4 0.84 Free T3 Urine Color Yellow Urine Appearance Clear Urine pH 6.0 Urine Protein Negative Urine Glucose (UA) Negative Urine Ketones Negative Urine Blood Trace-intact Urine Nitrite Negative Urine Bilirubin Negative Urine Urobilinogen 0.2 Ur Leukocyte Esterase Negative Urine RBC 2-5 Urine WBC 2-5 Ur Transition Epith Cell Moderate Urine Bacteria Few 04/10/19 04/10/19 04/10/19 14:06 14:06 20:20 WBC RBC Hgb Hct MCV MCH MCHC RDW Plt Count MPV Absolute Neuts (auto) Neutrophils % Lymphocytes % Monocytes % Eosinophils % Basophils % Sodium Potassium Chloride Carbon Dioxide Anion Gap BUN Creatinine Est GFR (CKD-EPI)AfAm Est GFR (CKD-EPI)NonAf Random Glucose Hemoglobin A1c % Lactic Acid 3.6 H* Calcium Magnesium Total Bilirubin AST ALT Alkaline Phosphatase Creatine Kinase 78 Total Protein Albumin Free T4 Free T3 0.7 L Urine Color Urine Appearance Urine pH Urine Protein Urine Glucose (UA) Urine Ketones Urine Blood Urine Nitrite Urine Bilirubin Urine Urobilinogen Ur Leukocyte Esterase Urine RBC Urine WBC Ur Transition Epith Cell Urine Bacteria 04/11/19 02:00 WBC RBC Hgb Hct MCV MCH MCHC RDW Plt Count MPV Absolute Neuts (auto) Neutrophils % Lymphocytes % Monocytes % Eosinophils % Basophils % Sodium Potassium Chloride Carbon Dioxide Anion Gap BUN Creatinine Est GFR (CKD-EPI)AfAm Est GFR (CKD-EPI)NonAf Random Glucose Hemoglobin A1c % Lactic Acid 1.7 Calcium Magnesium Total Bilirubin AST ALT Alkaline Phosphatase Creatine Kinase Total Protein Albumin Free T4 Free T3 Urine Color Urine Appearance Urine pH Urine Protein Urine Glucose (UA) Urine Ketones Urine Blood Urine Nitrite Urine Bilirubin Urine Urobilinogen Ur Leukocyte Esterase Urine RBC Urine WBC Ur Transition Epith Cell Urine Bacteria Active Medications Generic Name Dose Route Start Last Admin Trade Name Freq PRN Reason Stop Dose Admin Acetaminophen 650 mg 04/10/19 07:56 04/10/19 17:58 Tylenol - PO 650 mg Q6H PRN Administration FEVER Albuterol Sulfate 1 amp 04/10/19 20:00 04/10/19 21:51 Ventolin 0.083% Nebulizer Soln - NEB 1 amp RTID LANCE Administration Enoxaparin Sodium 40 mg 04/10/19 19:30 04/10/19 21:53 Lovenox - SQ 40 mg DAILY LANCE Administration Ceftriaxone Sodium 50 mls @ 100 mls/hr 04/10/19 10:00 04/10/19 10:18 Ceftriaxone 1 Gm-D5w Bag IVPB 100 mls/hr DAILY LANCE Administration Protocol Piperacillin Sod/Tazobactam 50 mls @ 100 mls/hr 04/10/19 18:15 Sod 3.375 gm/ Dextrose IVPB Q8H-IV LANCE Protocol Piperacillin Sod/Tazobactam 50 mls @ 100 mls/hr 04/10/19 18:15 04/11/19 01:25 Sod 3.375 gm/ Dextrose IVPB 04/11/19 10:29 100 mls/hr Q8H-IV LANCE Administration Protocol Sodium Chloride 1,000 mls @ 50 mls/hr 04/10/19 19:15 04/10/19 21:52 Normal Saline - IV 04/11/19 19:12 50 mls/hr ASDIR LANCE Administration Sodium Chloride 1,000 mls @ 100 mls/hr 04/10/19 23:30 04/10/19 23:30 Normal Saline - IV 100 mls/hr ASDIR LANCE Administration Liothyronine Sodium 15 mcg 04/10/19 15:14 04/11/19 06:25 Cytomel - PO 15 mcg DAILY@0700 LANCE Administration Non-Formulary Medication 0 each 04/10/19 15:00 04/10/19 15:18 Non-Formulary Med PO 1 each DAILY LANCE Administration Non-Formulary Medication 0 each 04/10/19 15:15 04/10/19 15:15 Non-Formulary Med PO 2 each DAILY LANCE Administration ASSESSMENT/PLAN: 64 year-old female with no reported significant PMH admitted for SIRS. SIRS --T101.2, WBC 16.8k, pyuria present on admission --all cultures negative to date including urine, flu, Legionella, blood --leukocytosis has resolved but continues to spike low grade fevers --serial CXRs unremarkable and CTA negative for PE, infiltrates, pneumonia --CTAP: no acute pathology --discussed at length with ID, unlikely this is bacterial, observe off antibiotics Lactic acidosis --lactic acid bumped 3.6 last night, IV fluids given, now 1.7 Hypothyroidism --spoke to CONTRACT FORESTER Demetrice Castellon, , FAX [phone]; treats patient for hypothyroidism --patient was off home thyroid meds for ~48 hours before admission, restarted yesterday --TSH zero, free T4 low normal, free T3 low --exhibits muscle aches, diarrhea, tachypnea, tachycardia, low grade fevers, subq edema of abdomen and pelvis --endocrinology consult requested Hyperbilirubinemia --total bili 2.9, direct 2.0; total bili was 0.5 in January --US abdomen ordered Elevated BNP --Echo ordered Hyponatremia Pre renal azotemia --continue gentle hydration FEN Fluids: NS @ 100mL/hr Electrolytes: replete as indicated Nutrition: NPO after midnight for US in am DVT prophylaxis: subq lovenox, oob, early ambulation Physical therapy Dispo: continues to require inpatient care. Full code. Visit type - Emergency Visit Emergency Visit: Yes ED Registration Date: 04/09/19 Care time: The patient presented to the Emergency Department on the above date and was hospitalized for further evaluation of their emergent condition. - New Patient This patient is new to me today: No - Critical Care Critical Care patient: No Cayla Fenton, CONTRACT FORESTER: This documentation has been prepared by the Abundio black Maria, SCRIBE, under my direction and personally reviewed by me in its entirety. I confirm that the documentation accurately reflects all work, treatment, procedures, and medical decision making performed by me.
[2019-04-11] MEDS: SODIUM CHLORIDE 1,000 ML IV SCH (23:30)
[2019-04-12] MEDS ORDERED: PT OWN MED DRAWER 7, Y5N ONE ×4 (06:27→17:56)
[2019-04-12] MEDS: LIOTHYRONINE SODIUM 5 MCG TABLET PO SCH (06:36)
[2019-04-12] MEDS: THYROID PORK PO SCH (06:37)
[2019-04-12] MEDS: ALBUTEROL SO4 0.083% IH SOL 2.5 MG/3 ML VIAL.NEB. NEB SCH ×3 (08:10→22:09)
--- NOTE | 2019-04-12 08:29 | PN ---
Physical Exam: SUBJECTIVE: Patient seen and examined at bedside, c/o abdominal pain (band like ) and upper ext pain, generalized weakness, denies cough,cp, sob, palpitations , N/V, urinary symptoms, states diarrhea 2 days ago which resolved. OBJECTIVE: Vital Signs Period Temp Pulse Resp BP Sys/Penaloza Pulse Ox Last 24 Hr 97.9 F-100.1 F 98-113 17-20 106-124/53-61 97-98 GENERAL: The patient is awake, alert, and fully oriented, in no acute distress. HEAD: Normal with no signs of trauma. EYES: PERRL, extraocular movements intact, sclera anicteric, conjunctiva clear. No ptosis. ENT: Ears normal, nares patent, oropharynx clear without exudates, moist mucous membranes. NECK: Trachea midline, full range of motion, supple. LUNGS: Breath sounds equal, clear to auscultation bilaterally, no wheezes, no crackles, no accessory muscle use. Noted DUGGAN, HEART: Regular rate and rhythm, S1, S2 without murmur, rub or gallop. ABDOMEN: Soft, nontender, nondistended, normoactive bowel sounds, no guarding, no rebound, no hepatosplenomegaly, no masses. EXTREMITIES: 2+ pulses, warm, well-perfused, no edema. NEUROLOGICAL: Cranial nerves II through XII grossly intact. Normal speech, gait not observed. PSYCH: Normal mood, normal affect. SKIN: Warm, dry, normal turgor, no rashes or lesions noted Laboratory Results - last 24 hr 04/11/19 04/11/19 04/11/19 06:55 06:55 07:05 WBC 9.0 RBC 3.87 Hgb 11.4 Hct 33.2 MCV 85.8 MCH 29.4 MCHC 34.2 RDW 12.3 Plt Count 127 L MPV 9.0 Neutrophils % No Result Required. Neutrophils % (Manual) 86.0 H Band Neutrophils % 5.0 Lymphocytes % No Result Required. Lymphocytes % (Manual) 3.0 L Monocytes % (Manual) 4 Metamyelocytes 2 Hypochromia 1+ Platelet Estimate Adequate Sodium Potassium Chloride Carbon Dioxide Anion Gap BUN Creatinine Est GFR (CKD-EPI)AfAm Est GFR (CKD-EPI)NonAf Random Glucose Calcium Phosphorus Magnesium Total Bilirubin Direct Bilirubin 2.0 H AST ALT Alkaline Phosphatase B-Natriuretic Peptide 2242.7 H Total Protein Albumin Hep A IgM Ab Confirm Hep Bs Antigen Hep B Core IgM Ab Hepatitis C Ab (EIA) 04/11/19 04/11/19 07:05 13:12 WBC RBC Hgb Hct MCV MCH MCHC RDW Plt Count MPV Neutrophils % Neutrophils % (Manual) Band Neutrophils % Lymphocytes % Lymphocytes % (Manual) Monocytes % (Manual) Metamyelocytes Hypochromia Platelet Estimate Sodium 131 L Potassium 4.4 Chloride 107 Carbon Dioxide 19 L Anion Gap 5 L BUN 24.0 H Creatinine 1.2 Est GFR (CKD-EPI)AfAm 55.70 Est GFR (CKD-EPI)NonAf 48.06 Random Glucose 145 H Calcium 7.8 L Phosphorus 2.4 L Magnesium 2.1 Total Bilirubin 2.9 H Direct Bilirubin AST 18 ALT 18 Alkaline Phosphatase 77 D B-Natriuretic Peptide Total Protein 4.8 L Albumin 2.3 L Hep A IgM Ab Confirm Negative Hep Bs Antigen Negative Hep B Core IgM Ab Negative Hepatitis C Ab (EIA) <0.1 Active Medications Generic Name Dose Route Start Last Admin Trade Name Freq PRN Reason Stop Dose Admin Acetaminophen 650 mg 04/10/19 07:56 04/11/19 14:49 Tylenol - PO 650 mg Q6H PRN Administration FEVER Albuterol Sulfate 1 amp 04/10/19 20:00 04/11/19 20:48 Ventolin 0.083% Nebulizer Soln - NEB 1 amp RTID LANCE Administration Enoxaparin Sodium 40 mg 04/10/19 19:30 04/11/19 10:05 Lovenox - SQ 40 mg DAILY LANCE Administration Sodium Chloride 1,000 mls @ 100 mls/hr 04/10/19 23:30 04/11/19 23:30 Normal Saline - IV 100 mls/hr ASDIR LANCE Administration Liothyronine Sodium 15 mcg 04/10/19 15:14 04/12/19 06:36 Cytomel - PO 15 mcg DAILY@0700 LANCE Administration Non-Formulary Medication 0 each 04/10/19 15:00 04/11/19 10:06 Non-Formulary Med PO 1 each DAILY LANCE Administration Non-Formulary Medication 0 each 04/10/19 15:15 04/11/19 10:09 Non-Formulary Med PO 2 each DAILY LANCE Administration Non-Formulary Medication 0 mg 04/11/19 09:00 04/12/19 06:37 Thyroid,Pork [Nature-Throid] PO 130 mg DAILY@0700 LANCE Administration ASSESSMENT/PLAN: 64 year-old female with a hx of borderline DM and thyroid disease,here for the evaluation of fever, sweats, and chills. Admitted for SIRS. *SIRS - max temp 103, afebrile now - wbc 16.8>11.1-> >11.6 today - Lactic acidosis 3.6> 1.7, s/p IVF -serial CXRs unremarkable CTA negative for PE, infiltrates, pneumonia, pul nodule out pt f/u -CTAP: no acute pathology, small right pleural effusion - Influenza ruled out - Initial UA 2+ blood,Nitrate and mild pyuria -s/p Zosyn and Ceftriaxone - ID following, unlikely this is bacterial, observe off antibiotics - RESP viral panel pending - BC preliminary no growth - Sputum culture pending -Legionella neg - will check ESR/ CRP *Lactic acidosis- resolved -lactic acid 3.6 last night, IV fluids given, now 1.7 *Hypothyroidism -as per PHARMACY TECHNICIAN PER DIEM Demetrice Castellon, , FAX [phone]; treats patient for hypothyroidism -patient was off home thyroid meds for ~48 hours before admission -TSH zero, free T4 low normal, free T3 low -exhibits muscle aches, diarrhea, tachypnea, tachycardia, low grade fevers, subq edema of abdomen and pelvis -endocrinology consulted , rec to cont on Nature thyroid and hold off on Liothyronine *Hyperbilirubinemia -total bili 2.9>4.1, direct 2.0; total bili was 0.5 in January -US abdomen : Hepatomegaly and diffuse fatty liver - AST/ALT/ ALK- wnl - Hep profile negative - Lipase level 50 *Elevated BNP, DUGGAN - BNP-2242 -CTAP: no acute pathology, small right pleural effusion -Echo ordered - Low Co2- likely hyperventilating - O2 sat stable on RA *Hyponatremia Pre renal azotemia continue gentle hydration - Na 131>132 - Cre 1.2>1.5 - Abdominal US : No evidence of hyro or acute abnormalities if Rt kidney - will check Serum / urine osmolality - Renal consult ordered * DM - Hgb ALc 6.6 - FS AC& HS - will hold off home dose Metformin - Insulin sliding scale *FEN Fluids: NS @ 100mL/hr Electrolytes: replete as indicated Nutrition: Diabetic diet DVT prophylaxis: subq lovenox, oob, early ambulation Physical therapy Dispo: continues to require inpatient care. Full code. Visit type - Emergency Visit Emergency Visit: Yes ED Registration Date: 04/09/19 Care time: The patient presented to the Emergency Department on the above date and was hospitalized for further evaluation of their emergent condition. - New Patient This patient is new to me today: Yes Date on this admission: 04/12/19 - Critical Care Critical Care patient: No
[2019-04-12 08:55] LABS: ALBUMIN 1.9 g/dl (3.4-5.0); BILIRUBIN,TOTAL 4.1 mg/dl (0.2-1); CALCIUM 7.8 mg/dl (8.5-10); CREATININE 1.5 mg/dl (0.55-1.3); MAGNESIUM 2.2 mg/dL (1.8-2.4); POTASSIUM 3.8 mmol/L (3.5-5.1); TOT PROT 4.5 g/dl (6.4-8.2)
[2019-04-12] MEDS: PROGESTERONE 200 MG PO SCH (10:05)
[2019-04-12 10:12] LABS: BASO % 0.2 % (0-2.0); EOS % 1.2 % (0-4.5); HEMATOCRIT 31.3 % (32.4-45.2); HEMOGLOBIN 10.5 GM/dL (10.7-15.3); LYMPH % 2.8 % (8-40); MCH 28.8 pg (25.7-33.7); MCHC 33.4 g/dl (32.0-36.0); MEAN CELL VOLUME 86.3 fl (80-96); MEAN PLT VOLUME 9.1 fl (7.5-11.1); MONO % 1.9 % (3.8-10.2); NEUT % 93.9 % (42.8-82.8); PLATELET COUNT 161 K/MM3 (134-434); RBC 3.63 M/mm3 (3.60-5.2); RDW 13.5 % (11.6-15.6); WHITE BLOOD COUNT 11.6 K/mm3 (4.0-10.0)
[2019-04-12] MEDS ORDERED: FUROSEMIDE 40 MG/4 ML INJECTABLE VIAL IVPUSH ONE (11:49)
[2019-04-12 12:07] LABS: ANISOCYTOSIS 0; MACROCYTOSIS 0; PLATELET ESTIMATE NORMAL
--- NOTE | 2019-04-12 13:18 | CONSULT ---
Consult Consult Specialty:: Endocrinology Referred by:: Cayla Fenton Reason for Consultation:: Abnormal TFT - History of Present Illness Chief Complaint: Fever History of Present Illness: his is a 64 year-old female with h/o hypothyroidism for about 5 years, decreased libido on Nature Throid and LT3 was admitted with c/o upper respiratory infection characterized as nasal congestion with clear discharge, no fever, no cough for about a week. She also had dysuria. Two days ago, she developed fever, sweats, and chills. She took her temperature and it was 104.2. She drank a lot of water and took motrin. Yesterday she went to urgent care and was found to be hypotensive (90s systolic), and she was referred to the [facility]. ER course was notable for temp of 01.2, WBC 16.8k, pyuria and abnormal TFT with Low TSH, low normal T4 and low T3. Pt has not taken thyroid meds for 2 days. Discussed case with BELL CAPTAIN who is treating the pt as outpt who says patient's TSH is suppressed because she is taking LT3. Pt denies any palpitations, heat tolerance prior to this admission. - History Source History Provided By: Patient, Medical Record - Past Medical History ...LMP: 03/28/12 ...: No Endocrine: Yes: Hypothyroidism - Alcohol/Substance Use Hx Alcohol Use: No - Smoking History Smoking history: Never smoked Have you smoked in the past 12 months: No Aproximately how many cigarettes per day: 0 Home Medications - Allergies Allergies/Adverse Reactions: Allergies Allergy/AdvReac Type Severity Reaction Status Date / Time No Known Allergies Allergy Verified 04/09/19 14:20 - Home Medications Home Medications: Ambulatory Orders Liothyronine Sodium 3 tab PO DAILY 04/09/19 Progesterone, Micronized [Progesterone] 2 cap PO DAILY 04/09/19 metFORMIN HCL [Metformin HCl ER] 1,000 mg PO DAILY 04/09/19 Thyroid,Pork [Nature-Throid] 260 mg PO DAILY 04/11/19 Review of Systems - Review of Systems Constitutional: reports: Malaise Eyes: reports: No Symptoms HENT: reports: No Symptoms Neck: reports: No Symptoms Respiratory: reports: Cough, SOB Gastrointestinal: reports: No Symptoms Genitourinary: reports: Dysuria Endocrine: reports: No Symptoms Hematology/Lymphatic: reports: No Symptoms Physical Exam Vital Signs: Vital Signs Temperature 98.3 F 04/12/19 06:00 Pulse Rate 104 H 04/12/19 06:00 Respiratory Rate 18 04/12/19 06:00 Blood Pressure 109/55 L 04/12/19 06:00 O2 Sat by Pulse Oximetry (%) 97 04/11/19 22:00 Constitutional: Yes: No Distress, Calm Eyes: Yes: Conjunctiva Clear, EOM Intact HENT: Yes: Atraumatic, Normocephalic Neck: Yes: Supple, Trachea Midline Cardiovascular: Yes: Regular Rate and Rhythm Respiratory: Yes: Regular, CTA Bilaterally Gastrointestinal: Yes: Normal Bowel Sounds, Soft Musculoskeletal: Yes: WNL Extremities: Yes: WNL Edema: No Neurological: Yes: Alert, Oriented Labs: CBC, BMP 04/12/19 07:50 04/12/19 07:50 Assessment/Plan AP Fever: Management as per ID/Primary Hypothyroidism Suppressed TSH sec to treatment with Nature Throid and Liothyronine As per health care provider treating her as outpt, she has chronically suppressed TSH because she is on Liothyronine Discussed with pt increased risk of irregular heart beat, thinning of bones, anxiety with suppressed TSH and that the goal of thyroid hormone replacement is to keep TSH WNL around 2 to 3. Pt verbalizes underderstanding Pt's meds reviewed. Pt on Nature Throid 130mg (LT4 76 LT3 18mcg) 2 tabs QD, Liothyronine 5mcg 3 tabs daily. Will continue with Nature Throid 2 tabs daily Will hold Liothyronine for now ?LORI: Consider Nephrology referral
--- NOTE | 2019-04-12 13:36 | PN ---
Progress Note, Physician History of Present Illness: slightly better today patients all cx results noted worsening creatinine low co2 - Current Medication List Current Medications: Active Medications Acetaminophen (Tylenol -) 650 mg PO Q6H PRN PRN Reason: FEVER Last Admin: 04/11/19 14:49 Dose: 650 mg Albuterol Sulfate (Ventolin 0.083% Nebulizer Soln -) 1 amp NEB RTID [facility] Last Admin: 04/11/19 20:48 Dose: 1 amp Enoxaparin Sodium (Lovenox -) 40 mg SQ DAILY [facility] Last Admin: 04/11/19 10:05 Dose: 40 mg Sodium Chloride (Normal Saline -) 1,000 mls @ 100 mls/hr IV ASDIR [facility] Last Admin: 04/11/19 23:30 Dose: 100 mls/hr Non-Formulary Medication (Non-Formulary Med) 0 each PO DAILY [facility] Last Admin: 04/11/19 10:06 Dose: 1 each Non-Formulary Medication (Non-Formulary Med) 0 each PO DAILY [facility] Last Admin: 04/11/19 10:09 Dose: 2 each Non-Formulary Medication (Patient's Own Med) 1 each PO DAILY [facility] - Objective Vital Signs: Vital Signs Temperature 98.3 F 04/12/19 06:00 Pulse Rate 104 H 04/12/19 06:00 Respiratory Rate 18 04/12/19 06:00 Blood Pressure 109/55 L 04/12/19 06:00 O2 Sat by Pulse Oximetry (%) 97 04/11/19 22:00 Constitutional: Yes: Calm, Mild Distress, Obese Respiratory: Yes: Regular, Other Gastrointestinal: Yes: Normal Bowel Sounds, Soft Musculoskeletal: Yes: WNL Extremities: Yes: WNL Neurological: Yes: Alert, Oriented Psychiatric: Yes: Alert, Oriented Labs: CBC, BMP 04/12/19 07:50 04/12/19 07:50 Assessment/Plan 64 year-old female with no reported significant PMH admitted for SIRS. SIRS Lactic acidosis Hypothyroidism Hyperbilirubinemia Elevated BNP Hyponatremia plan continue current mgmt no abx hydration rest as per the team
[2019-04-12] MEDS: ENOXAPARIN NA (PORCINE) 40 MG/0.4 ML DISP.SYRIN SQ SCH (17:58)
[2019-04-12 23:35] LABS: CALCIUM 7.8 mg/dl (8.5-10); CREATININE 1.6 mg/dl (0.55-1.3); POTASSIUM 3.6 mmol/L (3.5-5.1)
[2019-04-13] MEDS: ACETAMINOPHEN 325 MG TABLET (FP) PO PRN ×2 (04:27→23:35)
[2019-04-13 07:11] LABS: BASO % 0.2 % (0-2.0); EOS % 1.5 % (0-4.5); HEMATOCRIT 30.2 % (32.4-45.2); HEMOGLOBIN 10.1 GM/dL (10.7-15.3); LYMPH % 3.5 % (8-40); MCH 28.3 pg (25.7-33.7); MCHC 33.3 g/dl (32.0-36.0); MEAN CELL VOLUME 84.8 fl (80-96); MEAN PLT VOLUME 7.9 fl (7.5-11.1); MONO % 3.1 % (3.8-10.2); NEUT % 91.7 % (42.8-82.8); PLATELET COUNT 199 K/MM3 (134-434); RBC 3.57 M/mm3 (3.60-5.2); WHITE BLOOD COUNT 13.5 K/mm3 (4.0-10.0)
[2019-04-13 07:32] LABS: ALBUMIN 1.7 g/dl (3.4-5.0); BILIRUBIN,TOTAL 5.1 mg/dL (0.2-1); BLOOD UREA NITROGEN 28.8 mg/dL (7-18); CALCIUM 8.1 mg/dL (8.5-10.1); CREATININE 1.7 mg/dL (0.55-1.3); POTASSIUM 3.6 mmol/L (3.5-5.1); TOT PROT 4.4 g/dl (6.4-8.2)
[2019-04-13] MEDS: ALBUTEROL SO4 0.083% IH SOL 2.5 MG/3 ML VIAL.NEB. NEB SCH ×3 (08:33→20:44)
[2019-04-13] MEDS ORDERED: PT OWN MED DRAWER 7, Y5N ONE (08:55)
[2019-04-13 09:03] LABS: ANISOCYTOSIS 0; MACROCYTOSIS 0; PLATELET ESTIMATE DECREASED
[2019-04-13] MEDS: ENOXAPARIN NA (PORCINE) 40 MG/0.4 ML DISP.SYRIN SQ SCH (10:18)
[2019-04-13] MEDS: PROGESTERONE 200 MG PO SCH (10:20)
--- NOTE | 2019-04-13 11:00 | PN ---
Physical Exam: SUBJECTIVE: Patient seen and examined OBJECTIVE: Vital Signs Period Temp Pulse Resp BP Sys/Penaloza Pulse Ox Last 24 Hr 98.3 F-100.9 F 85-104 16-20 112-124/56-66 97-98 GENERAL: The patient is awake, alert, and fully oriented, in no acute distress. HEAD: Normal with no signs of trauma. EYES: PERRL, extraocular movements intact, sclera anicteric, conjunctiva clear. No ptosis. ENT: Ears normal, nares patent, oropharynx clear without exudates, moist mucous membranes. NECK: Trachea midline, full range of motion, supple. LUNGS: Breath sounds equal, clear to auscultation bilaterally, no wheezes, no crackles, no accessory muscle use. Noted DUGGAN, HEART: Regular rate and rhythm, S1, S2 without murmur, rub or gallop. ABDOMEN: Soft, nontender, nondistended, normoactive bowel sounds, no guarding, no rebound, no hepatosplenomegaly, no masses. EXTREMITIES: 2+ pulses, warm, well-perfused, no edema. NEUROLOGICAL: Cranial nerves II through XII grossly intact. Normal speech, gait not observed. PSYCH: Normal mood, normal affect. SKIN: Warm, dry, rash noted later in the evening on her right breast and right abdomen to upper mid thigh Laboratory Results - last 24 hr 04/12/19 04/12/19 04/12/19 07:50 07:50 07:50 WBC RBC Hgb Hct MCV MCH MCHC RDW Plt Count MPV Absolute Neuts (auto) Neutrophils % Neutrophils % (Manual) 88.4 H Band Neutrophils % 6.8 Lymphocytes % Lymphocytes % (Manual) 2.9 L Monocytes % Monocytes % (Manual) 0 L Eosinophils % Eosinophils % (Manual) 1.9 Basophils % Basophils % (Manual) 0.0 Myelocytes % (Man) 0 Promyelocytes % (Man) 0 Blast Cells % (Manual) 0 Nucleated RBC % Metamyelocytes 0 Hypochromia 0 Platelet Estimate Normal Polychromasia 0 Poikilocytosis 0 Anisocytosis 0 Microcytosis 0 Macrocytosis 0 ESR Sodium Potassium Chloride Carbon Dioxide Anion Gap BUN Creatinine Est GFR (CKD-EPI)AfAm Est GFR (CKD-EPI)NonAf Random Glucose Serum Osmolality 303 Calcium Total Bilirubin AST ALT Alkaline Phosphatase C-Reactive Protein > 19.0 H Total Protein Albumin 04/12/19 04/12/19 04/13/19 14:15 23:13 06:00 WBC 13.5 H RBC 3.57 L Hgb 10.1 L Hct 30.2 L MCV 84.8 MCH 28.3 MCHC 33.3 RDW 14.0 Plt Count 199 D MPV 7.9 D Absolute Neuts (auto) 12.4 H Neutrophils % 91.7 H Neutrophils % (Manual) 82.0 Band Neutrophils % 8.0 Lymphocytes % 3.5 L D Lymphocytes % (Manual) 4.0 L D Monocytes % 3.1 L Monocytes % (Manual) 2 L D Eosinophils % 1.5 Eosinophils % (Manual) 3.0 Basophils % 0.2 Basophils % (Manual) 0.0 Myelocytes % (Man) 0 Promyelocytes % (Man) 0 Blast Cells % (Manual) 0 Nucleated RBC % 0 Metamyelocytes 0 Hypochromia 0 Platelet Estimate Decreased Polychromasia 0 Poikilocytosis 0 Anisocytosis 0 Microcytosis 3+ Macrocytosis 0 ESR 100 H Sodium 128 L Potassium 3.6 Chloride 106 Carbon Dioxide 16 L Anion Gap 6 L BUN 28.0 H Creatinine 1.6 H Est GFR (CKD-EPI)AfAm 39.34 Est GFR (CKD-EPI)NonAf 33.94 Random Glucose 144 H Serum Osmolality Calcium 7.8 L Total Bilirubin AST ALT Alkaline Phosphatase C-Reactive Protein Total Protein Albumin 04/13/19 06:00 WBC RBC Hgb Hct MCV MCH MCHC RDW Plt Count MPV Absolute Neuts (auto) Neutrophils % Neutrophils % (Manual) Band Neutrophils % Lymphocytes % Lymphocytes % (Manual) Monocytes % Monocytes % (Manual) Eosinophils % Eosinophils % (Manual) Basophils % Basophils % (Manual) Myelocytes % (Man) Promyelocytes % (Man) Blast Cells % (Manual) Nucleated RBC % Metamyelocytes Hypochromia Platelet Estimate Polychromasia Poikilocytosis Anisocytosis Microcytosis Macrocytosis ESR Sodium 137 Potassium 3.6 Chloride 109 H Carbon Dioxide 20 L Anion Gap 8 BUN 28.8 H Creatinine 1.7 H Est GFR (CKD-EPI)AfAm 36.56 Est GFR (CKD-EPI)NonAf 31.54 Random Glucose 109 H Serum Osmolality Calcium 8.1 L Total Bilirubin 5.1 H AST 19 ALT 11 L Alkaline Phosphatase 160 H C-Reactive Protein Total Protein 4.4 L Albumin 1.7 L Active Medications Generic Name Dose Route Start Last Admin Trade Name Krystin PRN Reason Stop Dose Admin Acetaminophen 650 mg 04/10/19 07:56 04/13/19 04:27 Tylenol - PO 650 mg Q6H PRN Administration FEVER Albuterol Sulfate 1 amp 04/10/19 20:00 04/13/19 08:33 Ventolin 0.083% Nebulizer Soln - NEB 1 amp RTID [facility] Administration Enoxaparin Sodium 40 mg 04/10/19 19:30 04/13/19 10:18 Lovenox - SQ 40 mg DAILY [facility] Administration Sodium Chloride 1,000 mls @ 100 mls/hr 04/10/19 23:30 04/11/19 23:30 Normal Saline - IV 100 mls/hr ASDIR [facility] Administration Non-Formulary Medication 0 each 04/10/19 15:15 04/13/19 10:20 Non-Formulary Med PO 200 each DAILY [facility] Administration Non-Formulary Medication 1 each 04/13/19 07:00 Patient's Own Med PO DAILY [facility] ASSESSMENT/PLAN: 64 year-old female with a hx of borderline DM and thyroid disease,here for the evaluation of fever, sweats, and chills. Admitted for SIRS. *SIRS - max temp 103, afebrile now 98.3 - wbc 16.8>11.1-> >11.6 > 13.5 today - Lactic acidosis 3.6> 1.7, s/p IVF -serial CXRs unremarkable CTA negative for PE, infiltrates, pneumonia, pul nodule out pt f/u -CTAP: no acute pathology, small right pleural effusion - Influenza ruled out - Initial UA 2+ blood,Nitrate and mild pyuria - DC'd Zosyn and Ceftriaxone - ID following, Dr. Dot Olvera seen today and started Ceftriaxone 1gm. Pt with possible reaction post infusion. Redness tender to touch down right hip and on her right breast Per ID-DC Ceftriaxone and start 500mg Levaquin IV Daily - RESP viral panel pending - BC preliminary no growth - Sputum culture pending -Legionella neg - will check ESR/ CRP *Lactic acidosis- resolved -lactic acid 3.6 04/10; 1.7 04/11; IV fluids given on, Today 1.2 *Hypothyroidism -as per [employer]ER Demetrice Castellon, , FAX [phone]; treats patient for hypothyroidism -patient was off home thyroid meds for ~48 hours before admission -TSH zero, free T4 low normal, free T3 low -exhibits muscle aches, diarrhea, tachypnea, tachycardia, low grade fevers, subq edema of abdomen and pelvis -endocrinology consulted , rec to cont on Nature thyroid and hold off on Liothyronine *Hyperbilirubinemia -total bili 2.9>4.1, direct 2.0; total bili was 0.5 in January -US abdomen : Hepatomegaly and diffuse fatty liver - AST/ALT/ ALK- wnl - Hep profile negative - Lipase level 50 *Elevated BNP, DUGGAN - BNP-2242 -CTAP: no acute pathology, small right pleural effusion -Echo ordered - Low Co2- likely hyperventilating - O2 sat stable on RA *Hyponatremia-resolved Pre renal azotemia continue gentle hydration - Na 137 - Cre 1.7 - Abdominal US : No evidence of hyro or acute abnormalities if Rt kidney - will check Serum / urine osmolality - Renal consult ordered * DM - Hgb ALc 6.6 - FS AC& HS - will hold off home dose Metformin - Insulin sliding scale *FEN Fluids: NS @ 100mL/hr Electrolytes: replete as indicated Nutrition: Diabetic diet DVT prophylaxis: subq lovenox, oob, early ambulation Physical therapy Dispo: continues to require inpatient care. Full code. Visit type - Emergency Visit Emergency Visit: Yes ED Registration Date: 04/09/19 Care time: The patient presented to the Emergency Department on the above date and was hospitalized for further evaluation of their emergent condition. - New Patient This patient is new to me today: Yes Date on this admission: 04/14/19 - Critical Care Critical Care patient: No
[2019-04-13] MEDS: NON-FORMULARY MED PO SCH (11:50)
[2019-04-13] MEDS ORDERED: CEFTRIAXONE 1 G/50 ML PREMIX 50 ML IVPB SCH (12:15)
--- NOTE | 2019-04-13 12:45 | PN ---
Progress Note, Physician History of Present Illness: Pt alert. States she is feeling better but still weak. Temp of 100.9F yesterday. WBC trending back up. - Current Medication List Current Medications: Active Medications Acetaminophen (Tylenol -) 650 mg PO Q6H PRN PRN Reason: FEVER Last Admin: 04/13/19 04:27 Dose: 650 mg Albuterol Sulfate (Ventolin 0.083% Nebulizer Soln -) 1 amp NEB RTID [facility] Last Admin: 04/13/19 08:33 Dose: 1 amp Enoxaparin Sodium (Lovenox -) 40 mg SQ DAILY [facility] Last Admin: 04/13/19 10:18 Dose: 40 mg Sodium Chloride (Normal Saline -) 1,000 mls @ 100 mls/hr IV ASDIR [facility] Last Admin: 04/11/19 23:30 Dose: 100 mls/hr Ceftriaxone Sodium (Ceftriaxone 1 Gm-D5w Bag) 50 mls @ 100 mls/hr IVPB DAILY [facility]; Protocol Non-Formulary Medication (Non-Formulary Med) 0 each PO DAILY [facility] Last Admin: 04/13/19 10:20 Dose: 200 each Non-Formulary Medication (Patient's Own Med) 1 each PO DAILY [facility] - Objective Vital Signs: Vital Signs Temperature 98.8 F 04/13/19 06:00 Pulse Rate 85 04/13/19 06:00 Respiratory Rate 20 04/13/19 06:00 Blood Pressure 119/56 L 04/13/19 06:00 O2 Sat by Pulse Oximetry (%) 98 04/12/19 22:30 Constitutional: Yes: No Distress, Calm Cardiovascular: Yes: Regular Rate and Rhythm Respiratory: Yes: Regular Gastrointestinal: Yes: Normal Bowel Sounds, Soft Genitourinary: Yes: WNL Musculoskeletal: Yes: WNL Extremities: Yes: WNL Integumentary: Yes: WNL Neurological: Yes: Alert Labs: CBC, BMP 04/13/19 06:00 04/13/19 06:00 Laboratory Results - last 24 hr 04/12/19 04/12/19 04/12/19 07:50 07:50 14:15 WBC RBC Hgb Hct MCV MCH MCHC RDW Plt Count MPV Absolute Neuts (auto) Neutrophils % Neutrophils % (Manual) Band Neutrophils % Lymphocytes % Lymphocytes % (Manual) Monocytes % Monocytes % (Manual) Eosinophils % Eosinophils % (Manual) Basophils % Basophils % (Manual) Myelocytes % (Man) Promyelocytes % (Man) Blast Cells % (Manual) Nucleated RBC % Metamyelocytes Hypochromia Platelet Estimate Polychromasia Poikilocytosis Anisocytosis Microcytosis Macrocytosis ESR 100 H Sodium Potassium Chloride Carbon Dioxide Anion Gap BUN Creatinine Est GFR (CKD-EPI)AfAm Est GFR (CKD-EPI)NonAf Random Glucose Serum Osmolality 303 Lactic Acid Calcium Total Bilirubin AST ALT Alkaline Phosphatase C-Reactive Protein > 19.0 H Total Protein Albumin 04/12/19 04/13/19 04/13/19 23:13 06:00 06:00 WBC 13.5 H RBC 3.57 L Hgb 10.1 L Hct 30.2 L MCV 84.8 MCH 28.3 MCHC 33.3 RDW 14.0 Plt Count 199 D MPV 7.9 D Absolute Neuts (auto) 12.4 H Neutrophils % 91.7 H Neutrophils % (Manual) 82.0 Band Neutrophils % 8.0 Lymphocytes % 3.5 L D Lymphocytes % (Manual) 4.0 L D Monocytes % 3.1 L Monocytes % (Manual) 2 L D Eosinophils % 1.5 Eosinophils % (Manual) 3.0 Basophils % 0.2 Basophils % (Manual) 0.0 Myelocytes % (Man) 0 Promyelocytes % (Man) 0 Blast Cells % (Manual) 0 Nucleated RBC % 0 Metamyelocytes 0 Hypochromia 0 Platelet Estimate Decreased Polychromasia 0 Poikilocytosis 0 Anisocytosis 0 Microcytosis 3+ Macrocytosis 0 ESR Sodium 128 L 137 Potassium 3.6 3.6 Chloride 106 109 H Carbon Dioxide 16 L 20 L Anion Gap 6 L 8 BUN 28.0 H 28.8 H Creatinine 1.6 H 1.7 H Est GFR (CKD-EPI)AfAm 39.34 36.56 Est GFR (CKD-EPI)NonAf 33.94 31.54 Random Glucose 144 H 109 H Serum Osmolality Lactic Acid Calcium 7.8 L 8.1 L Total Bilirubin 5.1 H AST 19 ALT 11 L Alkaline Phosphatase 160 H C-Reactive Protein Total Protein 4.4 L Albumin 1.7 L 04/13/19 10:19 WBC RBC Hgb Hct MCV MCH MCHC RDW Plt Count MPV Absolute Neuts (auto) Neutrophils % Neutrophils % (Manual) Band Neutrophils % Lymphocytes % Lymphocytes % (Manual) Monocytes % Monocytes % (Manual) Eosinophils % Eosinophils % (Manual) Basophils % Basophils % (Manual) Myelocytes % (Man) Promyelocytes % (Man) Blast Cells % (Manual) Nucleated RBC % Metamyelocytes Hypochromia Platelet Estimate Polychromasia Poikilocytosis Anisocytosis Microcytosis Macrocytosis ESR Sodium Potassium Chloride Carbon Dioxide Anion Gap BUN Creatinine Est GFR (CKD-EPI)AfAm Est GFR (CKD-EPI)NonAf Random Glucose Serum Osmolality Lactic Acid 1.2 Calcium Total Bilirubin AST ALT Alkaline Phosphatase C-Reactive Protein Total Protein Albumin Problem List - Problems (1) Fever and chills Code(s): R50.9 - FEVER, UNSPECIFIED (2) Sepsis associated hypotension Code(s): A41.9 - SEPSIS, UNSPECIFIED ORGANISM; I95.9 - HYPOTENSION, UNSPECIFIED (3) UTI (urinary tract infection) Code(s): N39.0 - URINARY TRACT INFECTION, SITE NOT SPECIFIED Qualifiers: Urinary tract infection type: site unspecified Hematuria presence: with hematuria Qualified Code(s): N39.0 - Urinary tract infection, site not specified; R31.9 - Hematuria, unspecified Assessment/Plan Fever Leukocytosis UTI LORI Hypotension Hypothyroidism -- Pt is alert but with fever yesterday, wbc trended up yesterday off of antibiotics -- Lab results/imaging results noted -- Will restart Ceftriaxone as pt states she was having dysuria in the previous week -- monitor wbc/temp trend, monitor renal function -- Endocrinology following Pt is alert, vitals stable, without distress at this time
--- NOTE | 2019-04-13 15:07 | CON.NEP ---
Consult Consult Specialty:: Nephrology Referred by:: dr cardenas Reason for Consultation:: violeta - History of Present Illness Chief Complaint: hypotension History of Present Illness: 64 acute illness with fever, hypotension 5 days ago found to have azotemia which is getting worse gradually she still has hyponatremia urine lytes show spot sodium less than 6 (specific gravity not displayed ) - Past Medical History ...LMP: 03/28/12 ...: No Endocrine: Yes: Hypothyroidism - Alcohol/Substance Use Hx Alcohol Use: No - Smoking History Smoking history: Never smoked Have you smoked in the past 12 months: No Aproximately how many cigarettes per day: 0 Home Medications - Allergies Allergies/Adverse Reactions: Allergies Allergy/AdvReac Type Severity Reaction Status Date / Time No Known Allergies Allergy Verified 04/09/19 14:20 - Home Medications Home Medications: Ambulatory Orders Liothyronine Sodium 3 tab PO DAILY 04/09/19 Progesterone, Micronized [Progesterone] 2 cap PO DAILY 04/09/19 metFORMIN HCL [Metformin HCl ER] 1,000 mg PO DAILY 04/09/19 Thyroid,Pork [Nature-Throid] 260 mg PO DAILY 04/11/19 Nephrology Consult - Height Height: 5 ft 8 in - Weight Weight: 210 lb - BMI Body Mass Index (BMI): 31.9 - Lab Results CBC,BMP: CBC, BMP 04/13/19 06:00 04/13/19 06:00 Anion Gap: Anion Gap Anion Gap 8 MMOL/L (8-16) 04/13/19 06:00 - Physical Examination Vital Signs: Vital Signs Temperature 98.8 F 04/13/19 06:00 Pulse Rate 85 04/13/19 06:00 Respiratory Rate 18 04/13/19 10:00 Blood Pressure 119/56 L 04/13/19 06:00 O2 Sat by Pulse Oximetry (%) 98 04/12/19 22:30 Constitutional: Yes: Well Nourished, No Distress, Calm, Obese Eyes: Yes: WNL, Conjunctiva Clear, EOM Intact Neck: Yes: WNL, Supple, Trachea Midline Cardiovascular: Yes: WNL, Regular Rate and Rhythm Respiratory: Yes: WNL, Regular, CTA Bilaterally Gastrointestinal: Yes: WNL, Normal Bowel Sounds Renal/: Yes: WNL Musculoskeletal: Yes: WNL Extremities: Yes: WNL Integumentary: Yes: Erythema Neurological: Yes: WNL, Alert, Oriented Psychiatric: Yes: WNL, Alert, Oriented Assessment/Plan violeta 2/2 hypotension plus nsaid use, fever and dehydration etiology is being worked up Febrile illness of unclear etiology myalgias and tender muscles suggests viral syndrome abd sono shows liver congestion
[2019-04-13 18:49] LABS: AMORP URATES 1+ /hpf (NONE SEEN); EPITHELIAL CELLS FEW /hpf
[2019-04-13] MEDS: SODIUM CHLORIDE 1,000 ML IV SCH (23:35)
[2019-04-14] MEDS: ALBUTEROL SO4 0.083% IH SOL 2.5 MG/3 ML VIAL.NEB. NEB SCH (08:55)
[2019-04-14 09:06] LABS: HEMATOCRIT 29.6 % (32.4-45.2); HEMOGLOBIN 10.2 GM/dl (10.7-15.3); MCH 29.5 pg (25.7-33.7); MCHC 34.3 g/dl (32.0-36.0); MEAN CELL VOLUME 86.2 fl (80-96); MEAN PLT VOLUME 7.9 fl (7.5-11.1); PLATELET COUNT 259 K/MM3 (134-434); RBC 3.44 M/mm3 (3.60-5.2); RDW 13.2 % (11.6-15.6); WHITE BLOOD COUNT 15.5 K/mm3 (4.0-10.8)
[2019-04-14 09:16] LABS: ALBUMIN 1.6 g/dl (3.4-5.0); BILIRUBIN,TOTAL 5.7 mg/dl (0.2-1); CALCIUM 8.1 mg/dl (8.5-10); CREATININE 1.6 mg/dl (0.55-1.3); MAGNESIUM 2.2 mg/dL (1.8-2.4); POTASSIUM 3.4 mmol/L (3.5-5.1); TOT PROT 4.4 g/dl (6.4-8.2)
[2019-04-14] MEDS: NATURE THROID PO SCH (09:41)
[2019-04-14] MEDS: ENOXAPARIN NA (PORCINE) 40 MG/0.4 ML DISP.SYRIN SQ SCH (09:42)
[2019-04-14] MEDS: PROGESTERONE 200 MG PO SCH (10:30)
--- NOTE | 2019-04-14 12:20 | PN ---
Progress Note, Physician History of Present Illness: patient has developedrash on the rt side of the body multiple places including the breast shingles now can be seen bilribuin has started trending up - Current Medication List Current Medications: Active Medications Acetaminophen (Tylenol -) 650 mg PO Q6H PRN PRN Reason: FEVER Last Admin: 04/13/19 23:35 Dose: 650 mg Albuterol Sulfate (Ventolin 0.083% Nebulizer Soln -) 1 amp NEB RTID [facility] Last Admin: 04/14/19 08:55 Dose: 1 amp Enoxaparin Sodium (Lovenox -) 40 mg SQ DAILY [facility] Last Admin: 04/14/19 09:42 Dose: 40 mg Sodium Chloride (Normal Saline -) 1,000 mls @ 100 mls/hr IV ASDIR [facility] Last Admin: 04/13/19 23:35 Dose: 100 mls/hr Levofloxacin (Levaquin 500 Mg Premixed Ivpb -) 500 mg in 100 mls @ 100 mls/hr IVPB DAILY [facility]; Protocol Last Admin: 04/14/19 09:42 Dose: 100 mls/hr Non-Formulary Med ( Progesterone 200mg Each Cap) 0 each PO DAILY [facility] Last Admin: 04/13/19 10:20 Dose: 200 each Patient's Own Medication (Nature- Throid 130mg Each) 0 each PO DAILY@0700 [facility] Last Admin: 04/14/19 09:41 Dose: 2 each - Objective Vital Signs: Vital Signs Temperature 97.9 F 04/14/19 10:00 Pulse Rate 67 04/14/19 10:00 Respiratory Rate 19 04/14/19 10:00 Blood Pressure 137/77 04/14/19 10:00 O2 Sat by Pulse Oximetry (%) 98 04/14/19 06:00 Constitutional: Yes: Calm, Mild Distress Cardiovascular: Yes: S1, S2 Respiratory: Yes: Regular, CTA Bilaterally Gastrointestinal: Yes: Normal Bowel Sounds, Soft Musculoskeletal: Yes: WNL Extremities: Yes: WNL Integumentary: Yes: Rash (on the rt side of the body,shingles) Neurological: Yes: Alert, Oriented Psychiatric: Yes: Alert, Oriented Labs: CBC, BMP 04/14/19 07:25 04/14/19 07:25 Assessment/Plan 64 year-old female with no reported significant PMH admitted for sepsis likely secondary to UTI. Sepsis likely Hematuria hyperbilirubinemia Hyponatremia Problem List - Problems (1) Fever and chills Code(s): R50.9 - FEVER, UNSPECIFIED (2) Sepsis associated hypotension Code(s): A41.9 - SEPSIS, UNSPECIFIED ORGANISM; I95.9 - HYPOTENSION, UNSPECIFIED (3) UTI (urinary tract infection) Code(s): N39.0 - URINARY TRACT INFECTION, SITE NOT SPECIFIED Qualifiers: Urinary tract infection type: site unspecified Hematuria presence: with hematuria Qualified Code(s): N39.0 - Urinary tract infection, site not specified; R31.9 - Hematuria, unspecified Assessment/Plan Fever Leukocytosis UTI LORI Hypotension Hypothyroidism hyperbilirubinemia plan will start patient on zosyn plan for mri i am worried patient is becoming sepsitc also i think we should start her on acylovir hydration
[2019-04-14] MEDS ORDERED: PIPERACILLIN/TAZOB 2.25 GM 2.25 GM in DEXTROSE 5%-WATER - 50 ML IVPB SCH (12:30)
[2019-04-14] MEDS ORDERED: ACYCLOVIR INJECTION 500 MG in DEXTROSE 5%-WATER - 100 ML IVPB SCH ×2 (13:00→14:00)
[2019-04-14] MEDS ORDERED: DEXTROSE 5%-WATER - 50 ML IVPB ONE ×2 (13:07→17:44)
[2019-04-14] MEDS ORDERED: PIPERACILLIN/TAZOBACTAM 2.25 GM VIAL IVPB ONE ×2 (13:07→17:44)
[2019-04-14] MEDS: PIPERACILLIN/TAZOB 2.25 GM 3.375 GM in DEXTROSE 5%-WATER - 50 ML IVPB SCH ×2 (13:32→18:00)
[2019-04-14] MEDS ORDERED: valACYclovir HCL 1000 MG TABLET PO SCH (14:00)
[2019-04-14] MEDS: valACYclovir HCL 500 MG TABLET (FP) PO SCH ×2 (14:55→22:04)
--- NOTE | 2019-04-14 15:22 | CON.CARD ---
Consult Consult Specialty:: Cardiology Referred by:: Medicine Reason for Consultation:: edema, elevated BNP - History of Present Illness Chief Complaint: fever History of Present Illness: 64F no PMH on thyroid meds, metformin for weight loss p/w congestion, dysuria, fever, chills. Has been admitted and treating with abx, treated for UTI. Note fevers, leukocystosis. Also with hyponatremia, received IVF. . Abx were stopped after afebrile for 48 hours, abx were restarted and LFTs trending up as well with plan for MRCP. Noted to have elevated BNP, with echo pending today, as well as small pleural effusion, subq abdominal edema on imaging. - Past Medical History ...LMP: 03/28/12 ...: No Endocrine: Yes: Hypothyroidism - Alcohol/Substance Use Hx Alcohol Use: No - Smoking History Smoking history: Never smoked Have you smoked in the past 12 months: No Aproximately how many cigarettes per day: 0 Home Medications - Allergies Allergies/Adverse Reactions: Allergies Allergy/AdvReac Type Severity Reaction Status Date / Time No Known Allergies Allergy Verified 04/09/19 14:20 - Home Medications Home Medications: Ambulatory Orders Liothyronine Sodium 3 tab PO DAILY 04/09/19 Progesterone, Micronized [Progesterone] 2 cap PO DAILY 04/09/19 metFORMIN HCL [Metformin HCl ER] 1,000 mg PO DAILY 04/09/19 Thyroid,Pork [Nature-Throid] 260 mg PO DAILY 04/11/19 Family Medical History Family History: Unremarkable Review of Systems - Review of Systems Constitutional: reports: No Symptoms Eyes: reports: No Symptoms HENT: reports: No Symptoms Neck: reports: No Symptoms Cardiovascular: reports: No Symptoms Respiratory: reports: No Symptoms Gastrointestinal: reports: No Symptoms Genitourinary: reports: No Symptoms Musculoskeletal: reports: No Symptoms Integumentary: reports: No Symptoms Neurological: reports: No Symptoms Endocrine: reports: No Symptoms Hematology/Lymphatic: reports: No Symptoms Psychiatric: reports: No Symptoms Vital Signs: Vital Signs Temperature 98.0 F 04/14/19 14:00 Pulse Rate 75 04/14/19 14:00 Respiratory Rate 22 H 04/14/19 14:00 Blood Pressure 137/53 L 04/14/19 14:00 O2 Sat by Pulse Oximetry (%) 98 04/14/19 06:00 Constitutional: Yes: Well Nourished, No Distress, Calm Eyes: Yes: Conjunctiva Clear, EOM Intact HENT: Yes: Atraumatic, Normocephalic Neck: Yes: Supple, Trachea Midline Respiratory: Yes: Regular, CTA Bilaterally Gastrointestinal: Yes: Normal Bowel Sounds, Soft Cardiovascular: Yes: Regular Rate and Rhythm JVD: No PMI: Non-Displaced Heart Sounds: Yes: S1, S2 Musculoskeletal: No: Back Pain Extremities: No: Cold Edema: No Neurological: Yes: Alert, Oriented Psychiatric: No: Agitated - Other Data Labs, Other Data: CBC, BMP 04/14/19 07:25 04/14/19 07:25 Assessment/Plan EKG: sinus, nl intervals, no ischemic changes CT chest/abd/pelvis: sm R pleural effusion elevated BNP, pleural effusion, abd swelling - BNP elevated with rising LFTs, swelling in abd concerning for HF exac - echo pending - would hold off on IVF if possible and consider lasix - have deferred due to sepsis picture fever, UTI, sirs - manage per ID, on abx hepatomegaly, fatty liver, hyperbilirubinemia - bili, alk phos trending up - plan for MRCP hypothyroidism - manage per primary, endocrinology LORI - renal following
--- NOTE | 2019-04-14 15:24 | PN ---
Documentation entered by Dayana Del Castillo SCRIBE, acting as scribe for Cayla Fenton NP. Physical Exam: SUBJECTIVE: Patient seen and examined. Muscle aches have lessened. Developed a rash yesterday. OBJECTIVE: Vital Signs Period Temp Pulse Resp BP Sys/Penaloza Pulse Ox Last 24 Hr 98.3 F-99.3 F 77-100 16-20 120-139/57-61 97-99 GENERAL: The patient is awake, alert, and fully oriented, in no acute distress. LUNGS: CTA, no wheezing, unlabored HEART: Regular rate and rhythm, S1, S2 ABDOMEN: distended, firm, tympanitic, normoactive bowel sounds EXTREMITIES: 2+ pulses, warm, well-perfused, no edema. NEUROLOGICAL: Cranial nerves II through XII grossly intact. Normal speech, gait not observed. SKIN: Erythematous rash with fluid filled vesicles that extends from under the right axilla to the right hip laterally, and across the right breast, right abdomen, right side of the pubis; clear demarcation at the midline Laboratory Results - last 24 hr 04/12/19 04/13/19 04/13/19 18:29 06:00 10:19 Neutrophils % (Manual) 82.0 Band Neutrophils % 8.0 Lymphocytes % (Manual) 4.0 L D Monocytes % (Manual) 2 L D Eosinophils % (Manual) 3.0 Basophils % (Manual) 0.0 Myelocytes % (Man) 0 Promyelocytes % (Man) 0 Blast Cells % (Manual) 0 Nucleated RBC % 0 Metamyelocytes 0 Hypochromia 0 Platelet Estimate Decreased Polychromasia 0 Poikilocytosis 0 Anisocytosis 0 Microcytosis 3+ Macrocytosis 0 Lactic Acid 1.2 Urine Color Urine Appearance Urine pH Urine Protein Urine Glucose (UA) Urine Ketones Urine Blood Urine Nitrite Urine Bilirubin Urine Urobilinogen Ur Leukocyte Esterase Urine RBC Urine WBC Ur Transition Epith Cell Amorphous Urates Urine Bacteria Urine Osmolality 175 L 04/13/19 18:29 Neutrophils % (Manual) Band Neutrophils % Lymphocytes % (Manual) Monocytes % (Manual) Eosinophils % (Manual) Basophils % (Manual) Myelocytes % (Man) Promyelocytes % (Man) Blast Cells % (Manual) Nucleated RBC % Metamyelocytes Hypochromia Platelet Estimate Polychromasia Poikilocytosis Anisocytosis Microcytosis Macrocytosis Lactic Acid Urine Color Yellow Urine Appearance Clear Urine pH 5.5 Urine Protein 1+ H Urine Glucose (UA) Negative Urine Ketones Negative Urine Blood Trace-lysed Urine Nitrite Negative Urine Bilirubin 2+ H Urine Urobilinogen 0.2 Ur Leukocyte Esterase Negative Urine RBC 2-5 Urine WBC 2-5 Ur Transition Epith Cell Few Amorphous Urates 1+ Urine Bacteria Few Urine Osmolality Active Medications Generic Name Dose Route Start Last Admin Trade Name Shunq PRN Reason Stop Dose Admin Acetaminophen 650 mg 04/10/19 07:56 04/13/19 23:35 Tylenol - PO 650 mg Q6H PRN Administration FEVER Albuterol Sulfate 1 amp 04/10/19 20:00 04/13/19 20:44 Ventolin 0.083% Nebulizer Soln - NEB 1 amp RTID L[facility] Administration Enoxaparin Sodium 40 mg 04/10/19 19:30 04/13/19 10:18 Lovenox - SQ 40 mg DAILY L[facility] Administration Sodium Chloride 1,000 mls @ 100 mls/hr 04/10/19 23:30 04/13/19 23:35 Normal Saline - IV 100 mls/hr ASDIR [facility] Administration Levofloxacin 500 mg in 100 mls @ 100 mls/hr 04/14/19 10:00 Levaquin 500 Mg Premixed Ivpb - IVPB DAILY [facility] Protocol Non-Formulary Medication 0 each 04/10/19 15:15 04/13/19 10:20 Non-Formulary Med PO 200 each DAILY [facility] Administration Non-Formulary Medication 1 each 04/13/19 07:00 Patient's Own Med PO DAILY [facility] ASSESSMENT/PLAN 64 year-old female with no reported significant PMH admitted for SIRS. SIRS --Hospital day #5 --afebrile for 48 hours; had been on Zosyn 04/11-04/14, taken off and WBC has trended up, restart Zosyn --all cultures negative to date including urine, flu, Legionella, blood --serial CXRs unremarkable and CTA negative for PE, infiltrates, pneumonia --CTAP: no acute pathology Hepatosplenomegaly Diffuse fatty liver Hyperbilirubinemia --total bili 2.9 on admission, has trended up to 5.7 --alk phos 82 on admission, has trended up to 172 --CT and US imaging were unremarkable for gallbladder or biliary disease --will get MRCP today Lactic acidosis, resolved Hypthyroidism --exhibits muscle aches, diarrhea, tachypnea, tachycardia, low grade fevers, subq edema of abdomen and pelvis --TSH zero, free T4 low normal, free T3 low --suppressed TSH secondary to treatment with nature Thyroid and liothyronine --seen and evaluated by endocrinology: stop liothyronine, continue Nature Thyroid Elevated creatinine --Cr 1.5 on admission, 1.6 today, baseline 1.0 --seen and evaluated by renal Elevated BNP Subq abdominal edema Small pleural effusion --Echo ordered --cardiology consult requested Hyponatremia --resolved FEN Fluids: PO intake adequate Electrolytes: replete as indicated Nutrition: diabetic DVT prophylaxis: subq lovenox, oob, early ambulation Physical therapy Dispo: continues to require inpatient care. Full code. Visit type - Emergency Visit Emergency Visit: Yes ED Registration Date: 04/09/19 Care time: The patient presented to the Emergency Department on the above date and was hospitalized for further evaluation of their emergent condition. - New Patient This patient is new to me today: No - Critical Care Critical Care patient: No Cayla Fenton, FACTORY REPRESENTATIVE: This documentation has been prepared by the Abundio black Maria, SCRIBE, under my direction and personally reviewed by me in its entirety. I confirm that the documentation accurately reflects all work, treatment, procedures, and medical decision making performed by me.
[2019-04-14] MEDS ORDERED: SODIUM CHLORIDE 1,000 ML IV SCH (15:30)
--- NOTE | 2019-04-14 17:14 | ECHO ---
Name: GEOFFREY KRAUSEINE Exam:Adult Echocardiogram Study Date: 04/14/2019 03:10 PM Age: 64 yrs MMode/2D Measurements & Calculations IVSd: 0.97 cm Ao root diam: 2.6 cm LVIDd: 4.4 cm LA dimension: 3.1 cm LVIDs: 2.8 cm LVPWd: 1.0 cm LVPWs: 1.7 cm EDV(Teich): 89.1 ml ESV(Teich): 29.9 ml LVOT diam: 1.8 cm Doppler Measurements & Calculations MV E max jose manuel: 105.0 cm/sec MV dec slope: 480.5 cm/sec2 MV A max jose manuel: 120.6 cm/sec MV E/A: 0.87 Ao V2 max: 192.0 cm/sec LV V1 max P.3 mmHg Ao max P.9 mmHg LV V1 max: 135.0 cm/sec RED(V,D): 1.8 cm2 MR max jose manuel: 475.8 cm/sec PA V2 max: 111.2 cm/sec MR max P.6 mmHg PA max P.9 mmHg Procedure A complete two-dimensional transthoracic echocardiogram was performed (2D, M-mode, Doppler and color flow Doppler). Left Ventricle The left ventricle is normal in size. Left ventricular systolic function is normal. Ejection Fraction = 60- 65%. No regional wall motion abnormalities noted. Right Ventricle The right ventricle is normal size. The right ventricular systolic function is normal. Atria The left atrial size is normal. Right atrial size is normal. Mitral Valve The mitral valve is normal in structure and function. There is mild to moderate mitral regurgitation. Tricuspid Valve The tricuspid valve is normal in structure and function. There is mild tricuspid regurgitation. Aortic Valve There is mild aortic sclerosis.;. No aortic regurgitation is present. Pulmonic Valve The pulmonic valve is not well visualized. Great Vessels The aortic root is normal size. Pericardium/Pleura There is no pericardial effusion. Interpretation Summary The left ventricle is normal in size. Left ventricular systolic function is normal. No regional wall motion abnormalities noted. Ejection Fraction = 60-65%. The right ventricular systolic function is normal. The left atrial size is normal. Right atrial size is normal. There is mild to moderate mitral regurgitation. There is mild tricuspid regurgitation. There is mild aortic sclerosis. There is no pericardial effusion. Ney Yusuf MD 04/14/2019 05:13 PM
--- NOTE | 2019-04-14 18:41 | PN ---
Progress Note (short form) - Note Progress Note: Renal follow up for LORI Seen and examined at the bedside no acute complaints denies any shortness of breath or chest pain making urine appetite remains poor has rash on right lower abdomen Vital Signs Temperature 98.0 F 04/14/19 14:00 Pulse Rate 75 04/14/19 14:00 Respiratory Rate 22 H 04/14/19 14:00 Blood Pressure 137/53 L 04/14/19 14:00 O2 Sat by Pulse Oximetry (%) 98 04/14/19 06:00 Intake & Output 04/11/19 04/12/19 04/13/19 04/14/19 23:59 23:59 23:59 23:59 Intake Total 1250 1650 2250 800 Balance 1250 1650 2250 800 Weight 95.254 kg NASD no LE edema CBC, BMP 04/14/19 07:25 04/14/19 07:25 Current Medications Acetaminophen (Tylenol -) 650 mg PO Q6H PRN PRN Reason: FEVER Last Admin: 04/13/19 23:35 Dose: 650 mg Enoxaparin Sodium (Lovenox -) 40 mg SQ DAILY [facility] Last Admin: 04/14/19 09:42 Dose: 40 mg Piperacillin Sod/Tazobactam (Sod 3.375 gm/ Dextrose) 50 mls @ 100 mls/hr IVPB Q8H-IV [facility]; Protocol Last Admin: 04/14/19 18:00 Dose: 100 mls/hr Non-Formulary Med ( Progesterone 200mg Each Cap) 0 each PO DAILY [facility] Last Admin: 04/14/19 10:30 Dose: 2 each Patient's Own Medication (Nature- Throid 130mg Each) 0 each PO DAILY@0700 [facility] Last Admin: 04/14/19 09:41 Dose: 2 each Valacyclovir HCl (Valtrex -) 1,000 mg PO Q8H [facility] Last Admin: 04/14/19 14:55 Dose: 1,000 mg 64 year old woman who presented with fever and chills and found to have LORI. 1. LORI likely multifactorial from contrast exposure/volume depletion Renal function stable, slight improved can continue gentle IVF vs. oral intake can hold IVF if there is concern for volume overload check repeat urine studies Trend renal function and electrolytes daily woud avoid IV acyclovir given renal dysfunction if possible Tristan Santacruz DO 64 year-old female with no reported significant PMH, who takes thyroid medications and metformin for wellness/weight loss. She does not follow regularly with a PCP. Patient reports about a week ago she had an upper respiratory infection characterized as nasal congestion with clear discharge, no fever, no cough.
[2019-04-15] MEDS ORDERED: PIPERACILLIN/TAZOBACTAM 2.25 GM VIAL IVPB ONE (01:15)
[2019-04-15] MEDS ORDERED: DEXTROSE 5%-WATER - 50 ML IVPB ONE ×2 (01:15→18:15)
[2019-04-15] MEDS: ACETAMINOPHEN 325 MG TABLET (FP) PO PRN (01:20)
[2019-04-15] MEDS: PIPERACILLIN/TAZOB 2.25 GM 3.375 GM in DEXTROSE 5%-WATER - 50 ML IVPB SCH (01:20)
[2019-04-15] MEDS: valACYclovir HCL 500 MG TABLET (FP) PO SCH ×3 (06:07→22:09)
[2019-04-15] MEDS ORDERED: PT OWN MED DRAWER 7, Y5N ONE ×4 (06:13→18:15)
[2019-04-15 08:53] LABS: ALBUMIN 1.6 g/dl (3.4-5.0); CALCIUM 7.7 mg/dl (8.5-10); CREATININE 1.6 mg/dl (0.55-1.3); POTASSIUM 3.6 mmol/L (3.5-5.1); TOT PROT 4.5 g/dl (6.4-8.2)
[2019-04-15 09:15] LABS: HEMATOCRIT 31.9 % (32.4-45.2); HEMOGLOBIN 10.6 GM/dl (10.7-15.3); MCH 28.6 pg (25.7-33.7); MEAN CELL VOLUME 86.6 fl (80-96); MEAN PLT VOLUME 7.5 fl (7.5-11.1); PLATELET COUNT 312 K/MM3 (134-434); RBC 3.69 M/mm3 (3.60-5.2); RDW 13.8 % (11.6-15.6); WHITE BLOOD COUNT 18.5 K/mm3 (4.0-10.8)
--- NOTE | 2019-04-15 09:35 | PN ---
Progress Note, Physician Chief Complaint: Feels comfortable still c/o Rt Breast chest - Current Medication List Current Medications: Active Medications Acetaminophen (Tylenol -) 650 mg PO Q6H PRN PRN Reason: FEVER Last Admin: 04/15/19 01:20 Dose: 650 mg Enoxaparin Sodium (Lovenox -) 40 mg SQ DAILY [facility] Last Admin: 04/14/19 09:42 Dose: 40 mg Piperacillin Sod/Tazobactam (Sod 3.375 gm/ Dextrose) 50 mls @ 100 mls/hr IVPB Q8H-IV LANCE; Protocol Last Admin: 04/15/19 01:20 Dose: 100 mls/hr Non-Formulary Med ( Progesterone 200mg Each Cap) 0 each PO DAILY [facility] Last Admin: 04/14/19 10:30 Dose: 2 each Patient's Own Medication (Nature- Throid 130mg Each) 0 each PO DAILY@0700 [facility] Last Admin: 04/14/19 09:41 Dose: 2 each Valacyclovir HCl (Valtrex -) 1,000 mg PO Q8H [facility] Last Admin: 04/15/19 06:07 Dose: 1,000 mg - Objective Vital Signs: Vital Signs Temperature 97.9 F 04/15/19 06:00 Pulse Rate 72 04/15/19 06:00 Respiratory Rate 22 H 04/15/19 06:00 Blood Pressure 133/60 04/15/19 06:00 O2 Sat by Pulse Oximetry (%) 98 04/15/19 08:15 C/O Rt sided bresat rash HEENT: Mm moist, no anemia, PERRLA EOMI NECK: No JVd No Bruit CHEST: Erythematoush rash Rt Breast CTA B/L CVS; SS2 R no m/g/r ABD: No distention, non tender BS + EXT:Edema, Pulses + RESEARCH PROGRAM ASSISTANT: AOX3 non focal Labs: CBC, BMP 04/15/19 07:15 Problem List - Problems (1) LORI (acute kidney injury) Assessment/Plan: Most likely contrast induced nephropathy improving. Problems reviewed: Yes Code(s): N17.9 - ACUTE KIDNEY FAILURE, UNSPECIFIED (2) Volume overload Assessment/Plan: Due to over ration, now of IV fluid improving. Problems reviewed: Yes Code(s): E87.70 - FLUID OVERLOAD, UNSPECIFIED (3) Elevated brain natriuretic peptide (BNP) level Assessment/Plan: Most likely due to volume overload, echo is normal patient does not have any shortness of breath will observe off IV hydration. Problems reviewed: Yes Code(s): R79.89 - OTHER SPECIFIED ABNORMAL FINDINGS OF BLOOD CHEMISTRY (4) Fever and chills Assessment/Plan: Most likely viral possibly herpes zoster continue valacyclovir. Problems reviewed: Yes Code(s): R50.9 - FEVER, UNSPECIFIED (5) UTI (urinary tract infection) Assessment/Plan: Urine culture is negative will discuss duration of antibiotic with ID. Problems reviewed: Yes Code(s): N39.0 - URINARY TRACT INFECTION, SITE NOT SPECIFIED Qualifiers: Urinary tract infection type: site unspecified Hematuria presence: with hematuria Qualified Code(s): N39.0 - Urinary tract infection, site not specified; R31.9 - Hematuria, unspecified (6) Elevated white blood cell count Assessment/Plan: Most likely reactive patient is afebrile nontoxic. Problems reviewed: Yes Code(s): D72.829 - ELEVATED WHITE BLOOD CELL COUNT, UNSPECIFIED Assessment/Plan Pbserve off Hydration F/U Clinically Will discuss abx with ID
[2019-04-15 10:04] LABS: ADD RBC MORPHOLOGY YES
--- NOTE | 2019-04-15 10:38 | PN ---
Progress Note (short form) - Note Progress Note: s: no chest pain, palps, dizziness, dyspnea Current Medications Acetaminophen (Tylenol -) 650 mg PO Q6H PRN PRN Reason: FEVER Last Admin: 04/15/19 01:20 Dose: 650 mg Enoxaparin Sodium (Lovenox -) 40 mg SQ DAILY [facility] Last Admin: 04/14/19 09:42 Dose: 40 mg Piperacillin Sod/Tazobactam (Sod 3.375 gm/ Dextrose) 50 mls @ 100 mls/hr IVPB Q8H-IV [facility]; Protocol Last Admin: 04/15/19 01:20 Dose: 100 mls/hr Non-Formulary Med ( Progesterone 200mg Each Cap) 0 each PO DAILY [facility] Last Admin: 04/14/19 10:30 Dose: 2 each Patient's Own Medication (Nature- Throid 130mg Each) 0 each PO DAILY@0700 [facility] Last Admin: 04/14/19 09:41 Dose: 2 each Valacyclovir HCl (Valtrex -) 1,000 mg PO Q8H [facility] Last Admin: 04/15/19 06:07 Dose: 1,000 mg Vital Signs Period Temp Pulse Resp BP Sys/Penaloza Pulse Ox Last 24 Hr 97.9 F-98.0 F 72-75 22-22 133-137/53-60 98-98 Constitutional: Yes: Well Nourished, No Distress, Calm Eyes: Yes: Conjunctiva Clear, EOM Intact HENT: Yes: Atraumatic, Normocephalic Neck: Yes: Supple, Trachea Midline Respiratory: Yes: Regular, CTA Bilaterally Gastrointestinal: Yes: Normal Bowel Sounds, Soft Cardiovascular: Yes: Regular Rate and Rhythm JVD: No PMI: Non-Displaced Heart Sounds: Yes: S1, S2 Musculoskeletal: No: Back Pain Extremities: No: Cold Edema: No Neurological: Yes: Alert, Oriented Psychiatric: No: Agitated Assessment/Plan EKG: sinus, nl intervals, no ischemic changes echo 03/2019 nl LV size/function, RV nl function, mild to mod MR, mild TR, mild ao sclerosis CT chest/abd/pelvis: sm R pleural effusion elevated BNP, pleural effusion, abd swelling - BNP elevated with rising LFTs, swelling in abd concerning for HF exac - echo nl LV function - would hold off on IVF if possible and consider lasix - have deferred due to sepsis picture and LORI - patient endorses increased urine output and improvement in abd swelling after stopping IVF fever, UTI, sirs - manage per ID, on abx hepatomegaly, fatty liver, hyperbilirubinemia - bili, alk phos trending up - MRCP pending hypothyroidism - manage per primary, endocrinology LORI - renal following
[2019-04-15 10:40] LABS: PLATELET ESTIMATE ADEQUATE
[2019-04-15] MEDS: NATURE THROID PO SCH (10:43)
[2019-04-15] MEDS: ENOXAPARIN NA (PORCINE) 40 MG/0.4 ML DISP.SYRIN SQ SCH (10:43)
[2019-04-15] MEDS: PROGESTERONE 200 MG PO SCH (10:43)
[2019-04-15] MEDS ORDERED: PIPERACILLIN/TAZOB 3.375 GM 3.375 GM in DEXTROSE 5%-WATER - 50 ML IVPB SCH (10:45)
[2019-04-15] MEDS: PIPERACILLIN/TAZOB 3.375 GM 3.375 GM in DEXTROSE 5%-WATER - 50 ML IVPB SCH ×2 (11:29→18:19)
--- NOTE | 2019-04-15 12:53 | PN ---
Progress Note, Physician History of Present Illness: stable no new complaints still very thirsty - Current Medication List Current Medications: Active Medications Acetaminophen (Tylenol -) 650 mg PO Q6H PRN PRN Reason: FEVER Last Admin: 04/15/19 01:20 Dose: 650 mg Enoxaparin Sodium (Lovenox -) 40 mg SQ DAILY [facility] Last Admin: 04/15/19 10:43 Dose: 40 mg Piperacillin Sod/Tazobactam (Sod 3.375 gm/ Dextrose) 50 mls @ 100 mls/hr IVPB Q8H-IV [facility] Last Admin: 04/15/19 11:29 Dose: 100 mls/hr Non-Formulary Med ( Progesterone 200mg Each Cap) 0 each PO DAILY [facility] Last Admin: 04/15/19 10:43 Dose: 2 each Patient's Own Medication (Nature- Throid 130mg Each) 0 each PO DAILY@0700 [facility] Last Admin: 04/15/19 10:43 Dose: Not Given Valacyclovir HCl (Valtrex -) 1,000 mg PO Q8H [facility] Last Admin: 04/15/19 06:07 Dose: 1,000 mg - Objective Vital Signs: Vital Signs Temperature 97.9 F 04/15/19 06:00 Pulse Rate 72 04/15/19 06:00 Respiratory Rate 22 H 04/15/19 06:00 Blood Pressure 133/60 04/15/19 06:00 O2 Sat by Pulse Oximetry (%) 98 04/15/19 08:15 Constitutional: Yes: No Distress, Calm Cardiovascular: Yes: S1, S2 Respiratory: Yes: Regular, CTA Bilaterally Gastrointestinal: Yes: Normal Bowel Sounds, Soft Musculoskeletal: Yes: Other Extremities: Yes: WNL Integumentary: Yes: Rash Neurological: Yes: Alert, Oriented Psychiatric: Yes: Alert, Oriented Labs: CBC, BMP 04/15/19 07:15 04/15/19 07:15 Assessment/Plan 64 year-old female with no reported significant PMH admitted for sepsis likely secondary to UTI. Sepsis likely Hematuria hyperbilirubinemia Hyponatremia Problem List - Problems (1) Fever and chills Code(s): R50.9 - FEVER, UNSPECIFIED (2) Sepsis associated hypotension Code(s): A41.9 - SEPSIS, UNSPECIFIED ORGANISM; I95.9 - HYPOTENSION, UNSPECIFIED (3) UTI (urinary tract infection) Code(s): N39.0 - URINARY TRACT INFECTION, SITE NOT SPECIFIED Qualifiers: Urinary tract infection type: site unspecified Hematuria presence: with hematuria Qualified Code(s): N39.0 - Urinary tract infection, site not specified; R31.9 - Hematuria, unspecified Assessment/Plan Fever Leukocytosis UTI LORI Hypotension Hypothyroidism hyperbilirubinemia plan continue abx wbc still high bili trending down rest as per the team
--- NOTE | 2019-04-15 14:28 | PN ---
Progress Note (short form) - Note Progress Note: Renal follow up for LORI Seen and examined at the bedside still feels weak oral intake improving making urine no shortness of breath Vital Signs Temperature 97.9 F 04/15/19 06:00 Pulse Rate 72 04/15/19 06:00 Respiratory Rate 22 H 04/15/19 06:00 Blood Pressure 133/60 04/15/19 06:00 O2 Sat by Pulse Oximetry (%) 98 04/15/19 08:15 Intake & Output 04/12/19 04/13/19 04/14/19 04/15/19 23:59 23:59 23:59 23:59 Intake Total 1650 2250 800 900 Balance 1650 2250 800 900 Weight 95.254 kg NASD no LE edema CBC, BMP 04/15/19 07:15 04/15/19 07:15 Current Medications Acetaminophen (Tylenol -) 650 mg PO Q6H PRN PRN Reason: FEVER Last Admin: 04/15/19 01:20 Dose: 650 mg Enoxaparin Sodium (Lovenox -) 40 mg SQ DAILY [facility] Last Admin: 04/15/19 10:43 Dose: 40 mg Piperacillin Sod/Tazobactam (Sod 3.375 gm/ Dextrose) 50 mls @ 100 mls/hr IVPB Q8H-IV [facility] Last Admin: 04/15/19 11:29 Dose: 100 mls/hr Non-Formulary Med ( Progesterone 200mg Each Cap) 0 each PO DAILY [facility] Last Admin: 04/15/19 10:43 Dose: 2 each Patient's Own Medication (Nature- Throid 130mg Each) 0 each PO DAILY@0700 [facility] Last Admin: 04/15/19 10:43 Dose: Not Given Valacyclovir HCl (Valtrex -) 1,000 mg PO Q8H [facility] Last Admin: 04/15/19 06:07 Dose: 1,000 mg 64 year old woman who presented with fever and chills and found to have LORI. 1. LORI likely multifactorial from contrast exposure/volume depletion 2. Metabolic acidosis 3. Shingles Renal function slowly improving ok to be off IVF oral intake as tolerated will start sodium bicarb 650mg daily rTistan Santacruz DO
[2019-04-15] MEDS: SODIUM BICARBONATE 650 MG TABLET PO SCH (18:11)
[2019-04-15] MEDS ORDERED: PIPERACILLIN/TAZOBACTAM 3.375 GM VIAL IVPB ONE (18:15)
[2019-04-16] MEDS ORDERED: DEXTROSE 5%-WATER - 50 ML IVPB ONE ×3 (01:24→14:26)
[2019-04-16] MEDS ORDERED: PIPERACILLIN/TAZOBACTAM 3.375 GM VIAL IVPB ONE ×3 (01:24→14:26)
[2019-04-16] MEDS: PIPERACILLIN/TAZOB 3.375 GM 3.375 GM in DEXTROSE 5%-WATER - 50 ML IVPB SCH ×3 (01:31→17:50)
[2019-04-16] MEDS: valACYclovir HCL 500 MG TABLET (FP) PO SCH ×3 (06:33→21:31)
[2019-04-16] MEDS: NATURE THROID PO SCH (06:33)
[2019-04-16] MEDS ORDERED: PT OWN MED DRAWER 7, Y5N ONE ×3 (06:36→09:10)
[2019-04-16] MEDS: PIPERACILLIN/TAZOB 2.25 GM 3.375 GM in DEXTROSE 5%-WATER - 50 ML IVPB SCH (07:20)
[2019-04-16] MEDS: SODIUM CHLORIDE 1,000 ML IV SCH (07:24)
[2019-04-16] MEDS: ENOXAPARIN NA (PORCINE) 40 MG/0.4 ML DISP.SYRIN SQ SCH (09:42)
[2019-04-16] MEDS: SODIUM BICARBONATE 650 MG TABLET PO SCH (09:43)
[2019-04-16] MEDS: PROGESTERONE 200 MG PO SCH (09:44)
[2019-04-16 10:28] LABS: BASO % 0.7 % (0-2.0); EOS % 1.2 % (0-4.5); HEMATOCRIT 30.8 % (32.4-45.2); HEMOGLOBIN 10.2 GM/dL (10.7-15.3); LYMPH % 11.8 % (8-40); MCHC 33.1 g/dl (32.0-36.0); MEAN CELL VOLUME 84.6 fl (80-96); MEAN PLT VOLUME 7.6 fl (7.5-11.1); MONO % 6.7 % (3.8-10.2); NEUT % 79.6 % (42.8-82.8); PLATELET COUNT 327 K/MM3 (134-434); RBC 3.64 M/mm3 (3.60-5.2); RDW 13.9 % (11.6-15.6); WHITE BLOOD COUNT 17.9 K/mm3 (4.0-10.0)
[2019-04-16 11:34] LABS: BLOOD UREA NITROGEN 23.3 mg/dL (7-18); CALCIUM 7.9 mg/dL (8.5-10.1); CREATININE 1.4 mg/dL (0.55-1.3); POTASSIUM 3.7 mmol/L (3.5-5.1)
[2019-04-16 12:04] LABS: ANISOCYTOSIS 0; MACROCYTOSIS 0; PLATELET ESTIMATE NORMAL
--- NOTE | 2019-04-16 12:48 | PN ---
Progress Note, Physician Chief Complaint: Feels comfortable still c/o Rt breast itching - Current Medication List Current Medications: Active Medications Acetaminophen (Tylenol -) 650 mg PO Q6H PRN PRN Reason: FEVER Last Admin: 04/15/19 01:20 Dose: 650 mg Enoxaparin Sodium (Lovenox -) 40 mg SQ DAILY [facility] Last Admin: 04/16/19 09:42 Dose: 40 mg Piperacillin Sod/Tazobactam (Sod 3.375 gm/ Dextrose) 50 mls @ 100 mls/hr IVPB Q8H-IV [facility] Last Admin: 04/16/19 09:42 Dose: 100 mls/hr Non-Formulary Med ( Progesterone 200mg Each Cap) 0 each PO DAILY [facility] Last Admin: 04/16/19 09:44 Dose: 2 each Patient's Own Medication (Nature- Throid 130mg Each) 0 each PO DAILY@0700 [facility] Last Admin: 04/16/19 06:33 Dose: Not Given Sodium Bicarbonate (Sodium Bicarbonate -) 650 mg PO DAILY [facility] Last Admin: 04/16/19 09:43 Dose: 650 mg Valacyclovir HCl (Valtrex -) 1,000 mg PO Q8H [facility] Last Admin: 04/16/19 06:33 Dose: 1,000 mg - Objective Vital Signs: Vital Signs Temperature 97.6 F 04/16/19 10:42 Pulse Rate 68 04/16/19 06:00 Respiratory Rate 16 04/16/19 09:00 Blood Pressure 135/68 04/16/19 06:00 O2 Sat by Pulse Oximetry (%) 98 04/16/19 09:00 Feels tired otherwise comfortable HEENT: Mm moist, no anemia, PERRLA EOMI NECK: No JVd No Bruit CHEST: Improving Erythematoush rash Rt Breast CTA B/L CVS; SS2 R no m/g/r ABD: No distention, non tender BS + EXT:Edema, Pulses + [employer]: AOX3 non focal Labs: CBC, BMP 04/16/19 06:00 04/16/19 06:00 Problem List - Problems (1) Fever and chills Assessment/Plan: Most likely viral possibly herpes zoster continue valacyclovir. Code(s): R50.9 - FEVER, UNSPECIFIED (2) LORI (acute kidney injury) Assessment/Plan: Most likely contrast induced nephropathy improving. Code(s): N17.9 - ACUTE KIDNEY FAILURE, UNSPECIFIED (3) Elevated brain natriuretic peptide (BNP) level Assessment/Plan: Most likely due to volume overload, echo is normal patient does not have any shortness of breath will observe off IV hydration. Code(s): R79.89 - OTHER SPECIFIED ABNORMAL FINDINGS OF BLOOD CHEMISTRY (4) UTI (urinary tract infection) Assessment/Plan: Urine culture is negative will discuss duration of antibiotic with ID. Code(s): N39.0 - URINARY TRACT INFECTION, SITE NOT SPECIFIED Qualifiers: Urinary tract infection type: site unspecified Hematuria presence: with hematuria Qualified Code(s): N39.0 - Urinary tract infection, site not specified; R31.9 - Hematuria, unspecified (5) Elevated white blood cell count Assessment/Plan: Most likely reactive patient is afebrile nontoxic. Code(s): D72.829 - ELEVATED WHITE BLOOD CELL COUNT, UNSPECIFIED
--- NOTE | 2019-04-16 13:06 | PN ---
Progress Note (short form) - Note Progress Note: s: no chest pain, palps, dizziness, dyspnea Current Medications Acetaminophen (Tylenol -) 650 mg PO Q6H PRN PRN Reason: FEVER Last Admin: 04/15/19 01:20 Dose: 650 mg Enoxaparin Sodium (Lovenox -) 40 mg SQ DAILY [facility] Last Admin: 04/16/19 09:42 Dose: 40 mg Piperacillin Sod/Tazobactam (Sod 3.375 gm/ Dextrose) 50 mls @ 100 mls/hr IVPB Q8H-IV [facility] Last Admin: 04/16/19 09:42 Dose: 100 mls/hr Non-Formulary Med ( Progesterone 200mg Each Cap) 0 each PO DAILY [facility] Last Admin: 04/16/19 09:44 Dose: 2 each Patient's Own Medication (Nature- Throid 130mg Each) 0 each PO DAILY@0700 [facility] Last Admin: 04/16/19 06:33 Dose: Not Given Sodium Bicarbonate (Sodium Bicarbonate -) 650 mg PO DAILY [facility] Last Admin: 04/16/19 09:43 Dose: 650 mg Valacyclovir HCl (Valtrex -) 1,000 mg PO Q8H [facility] Last Admin: 04/16/19 06:33 Dose: 1,000 mg Vital Signs Period Temp Pulse Resp BP Sys/Penaloza Pulse Ox Last 24 Hr 97.6 F-98.7 F 68-75 16-18 135-150/57-68 98-98 Constitutional: Yes: Well Nourished, No Distress, Calm Eyes: Yes: Conjunctiva Clear, EOM Intact HENT: Yes: Atraumatic, Normocephalic Neck: Yes: Supple, Trachea Midline Respiratory: Yes: Regular, CTA Bilaterally Gastrointestinal: Yes: Normal Bowel Sounds, Soft Cardiovascular: Yes: Regular Rate and Rhythm JVD: No PMI: Non-Displaced Heart Sounds: Yes: S1, S2 Musculoskeletal: No: Back Pain Extremities: No: Cold Edema: No Neurological: Yes: Alert, Oriented Psychiatric: No: Agitated Assessment/Plan EKG: sinus, nl intervals, no ischemic changes echo 03/2019 nl LV size/function, RV nl function, mild to mod MR, mild TR, mild ao sclerosis CT chest/abd/pelvis: sm R pleural effusion elevated BNP, pleural effusion, abd swelling - BNP elevated with rising LFTs, swelling in abd concerning for HF exac - echo nl LV function - would hold off on IVF if possible and consider lasix - have deferred due to sepsis picture and LORI - improving in abd swelling after stopping IVF fever, UTI, sirs - manage per ID, on abx hepatomegaly, fatty liver, hyperbilirubinemia - bili, alk phos trending up - MRCP pending hypothyroidism - manage per primary, endocrinology LORI - renal following
[2019-04-16] MEDS: ACETAMINOPHEN 325 MG TABLET (FP) PO PRN (18:03)
[2019-04-17] MEDS ORDERED: DEXTROSE 5%-WATER - 50 ML IVPB ONE ×2 (00:55→09:50)
[2019-04-17] MEDS ORDERED: PIPERACILLIN/TAZOBACTAM 3.375 GM VIAL IVPB ONE ×2 (00:55→09:50)
[2019-04-17] MEDS: ACETAMINOPHEN 325 MG TABLET (FP) PO PRN (00:57)
[2019-04-17] MEDS: PIPERACILLIN/TAZOB 3.375 GM 3.375 GM in DEXTROSE 5%-WATER - 50 ML IVPB SCH ×2 (01:04→09:55)
[2019-04-17] MEDS: valACYclovir HCL 500 MG TABLET (FP) PO SCH ×2 (06:40→14:59)
[2019-04-17] MEDS ORDERED: PT OWN MED DRAWER 7, Y5N ONE ×2 (06:42→09:50)
[2019-04-17] MEDS: NATURE THROID PO SCH (06:43)
[2019-04-17 06:45] VITALS: BP 137/66; PULSE 66; TEMP 97.8
[2019-04-17 08:01] LABS: BASO % 0.2 % (0-2.0); EOS % 0.8 % (0-4.5); HEMATOCRIT 30.3 % (32.4-45.2); HEMOGLOBIN 10.4 GM/dl (10.7-15.3); LYMPH % 11.2 % (8-40); MCH 29.2 pg (25.7-33.7); MCHC 34.3 g/dl (32.0-36.0); MEAN CELL VOLUME 85.1 fl (80-96); MEAN PLT VOLUME 7.1 fl (7.5-11.1); MONO % 1.6 % (3.8-10.2); NEUT % 86.2 % (42.8-82.8); PLATELET COUNT 317 K/MM3 (134-434); RBC 3.56 M/mm3 (3.60-5.2); WHITE BLOOD COUNT 16.3 K/mm3 (4.0-10.8)
[2019-04-17 08:08] LABS: ALBUMIN 1.9 g/dl (3.4-5.0); BILIRUBIN,TOTAL 1.8 mg/dl (0.2-1); CALCIUM 7.8 mg/dl (8.5-10); CREATININE 1.4 mg/dl (0.55-1.3); MAGNESIUM 1.8 mg/dL (1.8-2.4); POTASSIUM 3.9 mmol/L (3.5-5.1); TOT PROT 5.3 g/dl (6.4-8.2)
[2019-04-17] MEDS: PROGESTERONE 200 MG PO SCH (09:54)
[2019-04-17] MEDS: SODIUM BICARBONATE 650 MG TABLET PO SCH (09:55)
[2019-04-17] MEDS: ENOXAPARIN NA (PORCINE) 40 MG/0.4 ML DISP.SYRIN SQ SCH (10:01)
--- NOTE | 2019-04-17 12:54 | PN ---
Progress Note, Physician History of Present Illness: starting to feel better redness of the breast improved rash has improved feels very weak - Current Medication List Current Medications: Active Medications Acetaminophen (Tylenol -) 650 mg PO Q6H PRN PRN Reason: FEVER Last Admin: 04/17/19 00:57 Dose: 650 mg Enoxaparin Sodium (Lovenox -) 40 mg SQ DAILY [facility] Last Admin: 04/17/19 10:01 Dose: 40 mg Non-Formulary Med ( Progesterone 200mg Each Cap) 0 each PO DAILY [facility] Last Admin: 04/17/19 09:54 Dose: 2 each Patient's Own Medication (Nature- Throid 130mg Each) 0 each PO DAILY@0700 [facility] Last Admin: 04/17/19 06:43 Dose: Not Given Sodium Bicarbonate (Sodium Bicarbonate -) 650 mg PO DAILY [facility] Last Admin: 04/17/19 09:55 Dose: 650 mg Valacyclovir HCl (Valtrex -) 1,000 mg PO Q8H [facility] Last Admin: 04/17/19 06:40 Dose: 1,000 mg - Objective Vital Signs: Vital Signs Temperature 97.8 F 04/17/19 06:00 Pulse Rate 66 04/17/19 06:00 Respiratory Rate 18 04/17/19 06:00 Blood Pressure 137/66 04/17/19 06:00 O2 Sat by Pulse Oximetry (%) 98 04/17/19 06:00 Constitutional: Yes: No Distress, Calm Cardiovascular: Yes: S1, S2 Respiratory: Yes: Regular, CTA Bilaterally Gastrointestinal: Yes: Normal Bowel Sounds, Soft Musculoskeletal: Yes: Other Extremities: Yes: Other Neurological: Yes: Alert, Oriented Psychiatric: Yes: Alert, Oriented Labs: CBC, BMP 04/17/19 07:15 04/17/19 07:15 Assessment/Plan 64 year-old female with no reported significant PMH admitted for sepsis likely secondary to UTI. Sepsis likely Hematuria hyperbilirubinemia Hyponatremia Problem List - Problems (1) Fever and chills Code(s): R50.9 - FEVER, UNSPECIFIED (2) Sepsis associated hypotension Code(s): A41.9 - SEPSIS, UNSPECIFIED ORGANISM; I95.9 - HYPOTENSION, UNSPECIFIED (3) UTI (urinary tract infection) Code(s): N39.0 - URINARY TRACT INFECTION, SITE NOT SPECIFIED Qualifiers: Urinary tract infection type: site unspecified Hematuria presence: with hematuria Qualified Code(s): N39.0 - Urinary tract infection, site not specified; R31.9 - Hematuria, unspecified Assessment/Plan Fever Leukocytosis UTI LORI Hypotension Hypothyroidism hyperbilirubinemia plan will stop abx continue acylovir nutrition
--- NOTE | 2019-04-17 13:48 | DS ---
Physical Exam: Patient was seen and examined earlier today by JAYDEN Jimenez. HOSPITAL COURSE: Date of Admission:04/09/19 Date of Discharge: 04/17/19 Pre hospital course 64 year-old female with no reported significant PMH, who takes thyroid medications and metformin for wellness/weight loss. She does not follow regularly with a PCP. Patient reports about a week ago she had an upper respiratory infection characterized as nasal congestion with clear discharge, no fever, no cough. She also had dysuria. Yesterday, she developed fever, sweats , and chills. She took her temperature and it was 104.2. She drank a lot of water and took motrin. Today she went to urgent care and was found to be hypotensive (90s systolic), and she was referred to the [facility]. ER course (1) T101.2, WBC 16.8k, pyuria (2) Na 127 corrected Subsequent hospital course 64 year-old female with no reported significant PMH admitted for SIRS. SIRS Pyuria --fevers to 103 in first 48 hours, defervesced on 04/10 --leukocytosis persisted throughout hospital stay, no baseline to compare if this is a chronic condition --completed 7 day course of Zosyn --all cultures were negative including urine --all imaging negative for source of infection Herpes zoster/shingles --rash emerged on hospital day #5 --dermatomal vesicular rash on right side extending from axilla to hip, involving right flank, right abdomen --received valacyclovir x 4 days, discharge with prescription for 6 more days of treatment Hyperbilirubinemia --total bili 2.9 on admission, peaked at 5.7, trending down 1.8 on date of discharge --CT, US, and MRCP imaging all unremarkable, no evidence of duct dilitation, liver normal, gallbladder unremarkable Elevated alk phos --normal on admission, then elevated, starting to trend down; possible drug reaction to Zosyn Hypothyroidism --exhibited muscle aches, diarrhea, tachypnea, tachycardia, low grade fevers , subq edema of abdomen and pelvis --TSH zero, free T4 low normal, free T3 low on admission --seen and evaluated by endocrine, of view this is suppressed TSH secondary to treatment with nature Thyroid and liothyronine; stopped liothyronine, continued Nature Thyroid --needs outpatient followup LORI --Cr 1.5 on admission, peaked at 1.7, trending down 1.4 on date of discharge ; baseline 1.0 --seen and evaluated by renal: likely multifactorial from volume depletion and contrast exposure --was treated with IV fluids, then stopped due to concern for volume overload --slowly improving at time of discharge --encourage PO intake Metabolic acidosis --persistent low bicarb; discharged with prescription for sodium bicarb daily Heart failure ruled out --Echo: LV normal, EF 60%; RV normal; mild to moderate MR; mild TR --seen and evaluated cardiology, no intervention Hyponatremia --resolved Minutes to complete discharge: 35 Discharge Summary Problems reviewed: Yes Reason For Visit: UTI-SEPSIS ASSOCIATED HYPOTENSION Current Active Problems LORI (acute kidney injury) (Acute) Elevated brain natriuretic peptide (BNP) level (Acute) Elevated white blood cell count (Acute) Fever and chills (Acute) Sepsis associated hypotension (Acute) UTI (urinary tract infection) (Acute) Volume overload (Acute) Condition: Improved - Instructions Referrals: Martha Ayon MD [Staff Physician] - Danny Holman MD [Staff Physician] - Disposition: HOME - Home Medications Comprehensive Discharge Medication List: Ambulatory Orders Liothyronine Sodium 3 tab PO DAILY 04/09/19 Progesterone, Micronized [Progesterone] 2 cap PO DAILY 04/09/19 metFORMIN HCL [Metformin HCl ER] 1,000 mg PO DAILY 04/09/19 Thyroid,Pork [Nature-Throid] 260 mg PO DAILY 04/11/19 This patient is new to me today: No Emergency Visit: Yes ED Registration Date: 04/09/19 Care time: The patient presented to the Emergency Department on the above date and was hospitalized for further evaluation of their emergent condition. Critical Care patient: No - Discharge Referral Referred to [facility] Med P.C.: No
--- NOTE | 2019-04-17 15:19 | PN ---
Physical Exam: SUBJECTIVE: Patient seen and examined OBJECTIVE: Vital Signs Period Temp Pulse Resp BP Sys/Penaloza Pulse Ox Last 24 Hr 97.8 F-98.5 F 66-76 16-18 137-152/60-68 96-98 GENERAL: The patient is awake, alert, and fully oriented, in no acute distress. HEAD: Normal with no signs of trauma. EYES: PERRL, extraocular movements intact, sclera anicteric, conjunctiva clear. No ptosis. ENT: Ears normal, nares patent, oropharynx clear without exudates, moist mucous membranes. NECK: Trachea midline, full range of motion, supple. LUNGS: Breath sounds equal, clear to auscultation bilaterally, no wheezes, no crackles, no accessory muscle use. HEART: Regular rate and rhythm, S1, S2 without murmur, rub or gallop. ABDOMEN: Soft, nontender, nondistended, normoactive bowel sounds, no guarding, no rebound, no hepatosplenomegaly, no masses. EXTREMITIES: 2+ pulses, warm, well-perfused, NEUROLOGICAL: Cranial nerves II through XII grossly intact. Normal speech, gait not observed. PSYCH: Normal mood, normal affect. SKIN: Warm, dry, dermatomal vesicular rash on right side extending from axilla. No redness on abdomen or hip. Skin on hip warm to touch Laboratory Results - last 24 hr 04/17/19 04/17/19 07:15 07:15 WBC 16.3 H RBC 3.56 L Hgb 10.4 L Hct 30.3 L MCV 85.1 MCH 29.2 MCHC 34.3 RDW 13.0 Plt Count 317 MPV 7.1 L Absolute Neuts (auto) 14.1 Neutrophils % 86.2 H Lymphocytes % 11.2 Monocytes % 1.6 L Eosinophils % 0.8 Basophils % 0.2 Sodium 135 L Potassium 3.9 Chloride 107 Carbon Dioxide 20 L Anion Gap 8 BUN 19.0 H Creatinine 1.4 H Est GFR (CKD-EPI)AfAm 46.23 Est GFR (CKD-EPI)NonAf 39.89 Random Glucose 115 H Calcium 7.8 L Magnesium 1.8 Total Bilirubin 1.8 H D AST 24 ALT 21 Alkaline Phosphatase 221 H Total Protein 5.3 L Albumin 1.9 L Active Medications Generic Name Dose Route Start Last Admin Trade Name Freq PRN Reason Stop Dose Admin Acetaminophen 650 mg 04/10/19 07:56 04/17/19 00:57 Tylenol - PO 650 mg Q6H PRN Administration FEVER Enoxaparin Sodium 40 mg 04/10/19 19:30 04/17/19 10:01 Lovenox - SQ 40 mg DAILY [facility] Administration Non-Formulary Med ( 0 each 04/10/19 15:15 04/17/19 09:54 Progesterone 200mg PO 2 each Each Cap) DAILY [facility] Administration Patient's Own 0 each 04/14/19 08:30 04/17/19 06:43 Medication (Nature- PO Not Given Throid 130mg Each) DAILY@0700 [facility] Sodium Bicarbonate 650 mg 04/15/19 14:30 04/17/19 09:55 Sodium Bicarbonate - PO 650 mg DAILY [facility] Administration Valacyclovir HCl 1,000 mg 04/14/19 14:15 04/17/19 14:59 Valtrex - PO 1,000 mg Q8H [facility] Administration ASSESSMENT/PLAN: 64 year-old female with no reported significant PMH admitted for SIRS currently being treated for shingles - SIRS Pyuria --fevers to 103 in first 48 hours --leukocytosis persisted throughout hospital stay, no baseline to compare if this is a chronic condition --completed 7 day course of Zosyn --all cultures were negative including urine --all imaging negative for source of infection Herpes zoster/shingles --rash emerged on hospital day #5 --dermatomal vesicular rash on right side extending from axilla to hip, involving right flank, right abdomen --received valacyclovir x 4 days Hyperbilirubinemia --total bili 2.9 on admission, peaked at 5.7, trending down 1.8 on date of discharge --CT, US, and MRCP imaging all unremarkable, no evidence of duct dilitation, liver normal, gallbladder unremarkable Elevated alk phos --normal on admission, then elevated, starting to trend down; possible drug reaction to Zosyn Hypothyroidism --exhibited muscle aches, diarrhea, tachypnea, tachycardia, low grade fevers , subq edema of abdomen and pelvis --TSH zero, free T4 low normal, free T3 low on admission --seen and evaluated by endocrine, of view this is suppressed TSH secondary to treatment with nature Thyroid and liothyronine; stopped liothyronine, continued Nature Thyroid --needs outpatient followup LORI --Cr 1.5 on admission, peaked at 1.7, trending down 1.4 on date of discharge ; baseline 1.0 --seen and evaluated by renal: likely multifactorial from volume depletion and contrast exposure --was treated with IV fluids, then stopped due to concern for volume overload --slowly improving at time of discharge --encourage PO intake Heart failure ruled out --Echo: LV normal, EF 60%; RV normal; mild to moderate MR; mild TR --seen and evaluated cardiology, no intervention Hyponatremia --resolved Visit type - Emergency Visit Emergency Visit: Yes ED Registration Date: 04/09/19 Care time: The patient presented to the Emergency Department on the above date and was hospitalized for further evaluation of their emergent condition. - New Patient This patient is new to me today: No - Critical Care Critical Care patient: No - Discharge Referral Referred to [facility] Med P.C.: No
--- NOTE | 2019-04-17 15:32 | PN ---
Progress Note (short form) - Note Progress Note: s: no chest pain, palps, dizziness, dyspnea Current Medications Acetaminophen (Tylenol -) 650 mg PO Q6H PRN PRN Reason: FEVER Last Admin: 04/17/19 00:57 Dose: 650 mg Enoxaparin Sodium (Lovenox -) 40 mg SQ DAILY [facility] Last Admin: 04/17/19 10:01 Dose: 40 mg Non-Formulary Med ( Progesterone 200mg Each Cap) 0 each PO DAILY [facility] Last Admin: 04/17/19 09:54 Dose: 2 each Patient's Own Medication (Nature- Throid 130mg Each) 0 each PO DAILY@0700 [facility] Last Admin: 04/17/19 06:43 Dose: Not Given Sodium Bicarbonate (Sodium Bicarbonate -) 650 mg PO DAILY [facility] Last Admin: 04/17/19 09:55 Dose: 650 mg Valacyclovir HCl (Valtrex -) 1,000 mg PO Q8H [facility] Last Admin: 04/17/19 14:59 Dose: 1,000 mg Vital Signs Period Temp Pulse Resp BP Sys/Penaloza Pulse Ox Last 24 Hr 97.8 F-98.5 F 66-76 16-18 137-152/60-68 96-98 Constitutional: Yes: Well Nourished, No Distress, Calm Eyes: Yes: Conjunctiva Clear, EOM Intact HENT: Yes: Atraumatic, Normocephalic Neck: Yes: Supple, Trachea Midline Respiratory: Yes: Regular, CTA Bilaterally Gastrointestinal: Yes: Normal Bowel Sounds, Soft Cardiovascular: Yes: Regular Rate and Rhythm JVD: No PMI: Non-Displaced Heart Sounds: Yes: S1, S2 Musculoskeletal: No: Back Pain Extremities: No: Cold Edema: No Neurological: Yes: Alert, Oriented Psychiatric: No: Agitated Assessment/Plan EKG: sinus, nl intervals, no ischemic changes echo 03/2019 nl LV size/function, RV nl function, mild to mod MR, mild TR, mild ao sclerosis CT chest/abd/pelvis: sm R pleural effusion elevated BNP, pleural effusion, abd swelling - BNP elevated with rising LFTs, swelling in abd concerning for HF exac - echo nl LV function - would hold off on IVF if possible and consider lasix - have deferred due to sepsis picture and LORI - improving in abd swelling after stopping IVF fever, UTI, sirs - manage per ID, on abx hepatomegaly, fatty liver, hyperbilirubinemia - manage per primary hypothyroidism - manage per primary, endocrinology LORI - renal following
== END 2019-04-17 16:15 | disposition home or self-care (01) | DRG 872 ==
LOC: FER 14:03 → FM/S 17:09
PROVIDERS: ADMIT Internal Medicine; ATTEND Nurse Practitioner Acute Care
DX: A41.89 Other specified sepsis (principal); N39.0 Urinary tract infection, site not specified; E87.1 Hypo-osmolality and hyponatremia; E87.2 Acidosis; J90 Pleural effusion, not elsewhere classified; N17.9 Acute kidney failure, unspecified; I95.9 Hypotension, unspecified; R50.9 Fever, unspecified; R73.03 Prediabetes; E03.9 Hypothyroidism, unspecified; E80.6 Other disorders of bilirubin metabolism; E86.0 Dehydration; B02.9 Zoster without complications; R16.2 Hepatomegaly with splenomegaly, not elsewhere classified; K76.0 Fatty (change of) liver, not elsewhere classified; R00.0 Tachycardia, unspecified; D72.829 Elevated white blood cell count, unspecified; Z79.1 Long term (current) use of non-steroidal anti-inflammatories (NSAID)
CPT/HCPCS: 36415; 71045-TC-FY; 71046-TC-FY; 71275-TC; 74177-TC; 74181-TC; 76705-TC; 80048; 80053; 80074; 81003; 81015; 82248; 82550; 82565; 83036; 83605; 83690; 83735; 83880; 83930; 83935; 84100; 84300; 84439; 84443; 84481; 84484; 85025; 85651; 86140; 86663; 87040; 87045; 87046; 87070; 87086; 87205; 87324; 87449; 87633; 87804; 87899; 93005; 93306-TC; 94640; 97116-GP; 97162-GP; 99284-25; J7030; Q9967

== ENCOUNTER 2024-09-24 10:04 | Day surgery (SDC) | payer OTHER, MEDICARE ==
[2024-09-22 09:15] VITALS: BMI 26.9
[2024-09-24] MEDS: CYCLOPENTOLATE 2% OPHTH SOLN 2 ML BOTTLE ONE (10:45)
[2024-09-24] MEDS: TROPICAMIDE 1% 3 ML EYE DROPS ONE (10:45)
[2024-09-24] MEDS: PHENYLEPHRINE 2.5% OPTHALMIC DROP 2ML BOTTLE ONE (10:45)
[2024-09-24] MEDS: CIPROFLOXACIN 0.3% EYE DROPS 5 ML BOTTLE ONE (10:45)
[2024-09-24] MEDS ORDERED: MIDAZOLAM HCL 2 MG/2 ML SINGLE DOSE VIAL ONE ×2 (11:00→12:41)
[2024-09-24 11:26] VITALS: RESP 17
[2024-09-24] MEDS ORDERED: TETRACAINE 0.5% OPHTH SOLN 2 ML BOTTLE ONE (11:54)
[2024-09-24] MEDS ORDERED: NEO/POLYMYX B SULF/DEXAMETH OPHTHALMIC 5ML BOTTLE ONE (11:54)
[2024-09-24] MEDS ORDERED: LIDOCAINE 1% P/F 10 MG/ML VIAL ONE (11:54)
[2024-09-24] MEDS ORDERED: BSS (NA/CA/MG/K) BALANCED SALT SOLUTION OPHTH SOLN 15 ML BOTTLE ONE (11:54)
[2024-09-24] MEDS ORDERED: EPINEPHrine 1:1000 P/F - 1 MG/ML AMP ONE (11:54)
[2024-09-24] MEDS ORDERED: CARBACHOL 0.01% INTRA-OCULAR 1.5 ML VIAL ONE (11:54)
[2024-09-24 18:01] VITALS: TEMP 97
[2024-09-24 18:20] VITALS: BP 122/58; PULSE 55
== END 2024-09-24 14:00 | disposition home or self-care (01) ==
LOC: FASU 10:04
PROVIDERS: ATTEND Ophthalmology
PROC: 08RJ3JZ Replacement of Right Lens with Synthetic Substitute, Percutaneous Approach (ICD-10-PCS; principal; 2024-09-24 12:43)
DX: H25.89 Other age-related cataract (principal)
CPT/HCPCS: 66984; V2632